=== PATIENT | female | born 1975 | race Caucasian/White ===

== ENCOUNTER 2018-03-05 09:57 | Emergency (ER) | payer OTHER, SELFPAY ==
[2018-03-05 10:03] VITALS: BP 148/92; PULSE 104; RESP 16; TEMP 36.4; O2SAT 100
--- NOTE | 2018-03-05 10:19 | W.ED.GENAD ---
Discharge Plan Discharge Details Chief Complaint: Cellulitis Primary Care Provider: Smooth Glover ED Provider: Gilbert Banks Home Meds and New Rx's Prescriptions: No Action clonazepam 0.5 MG tablet 0.5 - 1 mg PO BID Qty: 60 RF: 0 escitalopram oxalate 10 mg tablet 10 mg PO DAILY Qty: 30 RF: 11 Medical Decision Making Left lower lip swelling after piercin-year-old female presents with left lower lip swelling days after piercing with instead. She was unable to remove at home. She presented with mild anxiety and discrete tachycardia. I was able to remove this piercing, she had no purulent discharge. I will place her on antibiotics. She will perform swish and gargle with salt water therapy at home and follow-up with regular doctor if not improved in 5-7 days time. HPI General Mode of arrival: ambulatory. Date/Time Provider Initiated Documentation: 03/05/18 10:13. Limitations to Documentation: no limitations. Information obtained by: patient. History of Present Illness 42 year old F presents to the emergency department with the chief complaint of Left lower lip swelling after piercing, described as moderate, Quality is described as aching, and is localized to the mouth and left. Patient reports no radiation. Patient started experiencing this day(s) No relieving factors improve symptom(s), No exacerbating factors reported . Patient notes no other symptoms.. Related Data Home Medications Medication Instructions Recorded Confirmed clonazepam 0.5 - 1 mg PO BID #60 tab-cap 01/23/18 03/05/18 escitalopram 10 mg tablet 10 mg PO DAILY #30 tab 02/17/18 03/05/18 Previous Rx's Medication Instructions Recorded clonazepam 0.5 - 1 mg PO BID #60 tab-cap 01/23/18 escitalopram 10 mg tablet 10 mg PO DAILY #30 tab 02/17/18 Allergies Allergy/AdvReac Type Severity Reaction Status Date / Time No Known Allergies Allergy Unverified 03/05/18 10:05 General Stated Complaint: Cellulitis YAMILA: 4 Review of Systems Review of Systems 6 systems reviewed and otherwise negative FOR[facility]LY [facility] Family History Mother Asthma Father Diabetes Heart disease Sister No problems noted. Social History Smoking/Tobacco Use Status: Current every day Surgical History Dilation and curettage (~01/2013) LSO, LAPROSCOPIC Exam Narrative Exam Narrative: GEN: awake, alert, oriented 3. Pleasant, well groomed, interactive. HEAD: Normocephalic, atraumatic ENT: Mucous membranes moist, oropharynx unremarkable. Left lower lip has piercing in place, mild surrounding swelling tenderness. Patient removed. No fluctuance, no purulent discharge. External ear exam unremarkable EYES: PERRL, EOMI NECK: Full ROM, no VIRGIL, no menigismus Neuro: Grossly normal neurologic exam, conversant, interactive. Psych: Speech fluent, thoughts congruent, affect normal Course Vital Signs Temperature 36.4 C L 03/05/18 10:03 Pulse 104 H 03/05/18 10:03 Respiratory Rate 16 03/05/18 10:03 Blood Pressure 148/92 H 03/05/18 10:03 Pulse Oximetry 100 03/05/18 10:03 Temperature 36.4 C L 03/05/18 10:03 Temperature Source Skin 03/05/18 10:03 Pulse 104 H 03/05/18 10:03 Respiratory Rate 16 03/05/18 10:03 Respiratory Effort 03/05/18 10:03 Blood Pressure 148/92 H 03/05/18 10:03 Blood Pressure Position Sitting 03/05/18 10:03 Pulse Oximetry 100 03/05/18 10:03 Oxygen Delivery Method Room Air 03/05/18 10:03 Oxygen Flow Rate 0 03/05/18 10:03 Pain Level 7 03/05/18 10:03
== END 2018-03-05 10:26 | disposition home or self-care (01) ==
PROVIDERS: Emergency Provider Emergency Medicine; PCP Family Medicine
DX: L08.89 Other specified local infections of the skin and subcutaneous tissue (principal)
CPT/HCPCS: 99283

== ENCOUNTER 2018-07-17 15:12 | Emergency (ER) | payer OTHER, SELFPAY ==
[2018-07-17 15:46] VITALS: PULSE 90; RESP 16; TEMP 36.5; O2SAT 99
--- NOTE | 2018-07-17 16:09 | ED.GENADUL_ITS ---
Discharge Plan Disposition Patient Disposition: HOME Condition: Good Discharge Details Chief Complaint: EarProblem Clinical Impression: Acute right otitis media Reason For Visit: right ear pain Primary Care Provider: Smooth Glover ED Provider: Paul Sharma Home Meds and New Rx's Prescriptions: New amoxicillin 500 mg capsule 500 mg PO BID Qty: 14 RF: 0 loratadine 10 mg capsule 10 mg PO DAILY Qty: 14 RF: 0 No Action ibuprofen 400 mg Tablet 400 mg PO PRNRF: 0 Discharge Instructions Instructions: Otitis Media (ED) Additional Instructions: Please take medication as directed. Please take 1000 mg of acetaminophen and 800 mg of ibuprofen every 6 hours. If you notice any worsening of your symptoms, or any new symptoms such as vomiting, diarrhea, fever, chills, shortness of breath, chest pain, numbness, weakness, or fainting , please return immediately to the emergency department for reevaluation. Please follow up with your primary care provider as soon as possible for reassessment and reevaluation. As always, it was a pleasure participating in your medical care today. Referrals: Smooth Glover. [Primary Care Provider] - Medical Decision Making This is a pleasant 42-year-old female who presents today with signs and symptoms consistent with otitis externa. No evidence of tenderness over the mastoid, no red flags of meningitis. No concerning symptoms of systemic infection at this time. The remainder of her physical exam is otherwise benign with no evidence of rupture at the tympanic membrane. I feel that the patient would be benefited by antibiotics in conjunction with antihistamines. Will recommend NSAIDs for outpatient use as well. We discussed the importance of close follow-up and red flags which to return. I have extensively reviewed the treatment plan and discharge instructions with the patient. I have addressed all patient concerns at this time. The patient was made aware of what symptoms to monitor for that would warrant a return to the emergency department. Discussed the plan with the patient, they demonstrate verbal understanding and agreement with our assessment and plan at this time. HPI General Date/Time Provider Initiated Documentation: 07/17/18 16:08 . HPI Narrative: This is a 42-year-old female with no significant past medical history except for regular tobacco abuse who presents today for evaluation of right- sided ear pain. The patient states that for the past week she has had a mild upper respiratory infection with runny nose, cough, congestion. The patient had notable improvement of her symptoms except for today she was out walking her dog when she noticed sudden right sided ear pain. She came in within the next 2 hours for further evaluation. She does admit to mild decreased hearing in the right ear, she denies any headache, neck pain, neck stiffness, fever, chills, nausea, vomiting, diarrhea. Her other symptoms of URI have notably improved she denies any recent surgeries, trauma, or recent antibiotic use. She denies any other complaints at this time. She denies any pertinent family history or IV or illicit drug use. Related Data Home Medications Medication Instructions Recorded Confirmed amoxicillin 500 mg PO BID #14 cap 07/17/18 ibuprofen 400 mg PO PRN 07/17/18 loratadine 10 mg PO DAILY #14 cap 07/17/18 Previous Rx's Medication Instructions Recorded amoxicillin 500 mg PO BID #14 cap 07/17/18 loratadine 10 mg PO DAILY #14 cap 07/17/18 Allergies Allergy/AdvReac Type Severity Reaction Status Date / Time No Known Allergies Allergy Unverified 03/05/18 10:05 General Stated Complaint: EarProblem YAMILA: 4 Review of Systems Review of Systems All systems reviewed & are unremarkable except as noted in HPI and below PFSH Family History Mother Asthma Father Diabetes Heart disease Sister No problems noted. Social History frequency: 3-4 times per week duration: 15-30 minutes/day Smoking/Tobacco Use Status: Current every day tobacco type: cigarettes substance use type: does not use seatbelt use: always helmet use: Yes helmet use: always Exam Narrative Exam Narrative: 1.Const: Well-nourished, Well-developed, appearing stated age 2.Eyes: PERRL, no conjunctival injection, and symmetrical lids. 3.ENT: Atraumatic external nose and ears. Moist MM. Neck: Symmetric, trachea midline, No thyromegaly. Right tympanic membrane demonstrates notable effusion, with a serous component. Difficult to visualize osseous structures. Minimally erythematous around the tympanic membrane. No evidence of otitis externa. Left tympanic membrane is normal. Patient demonstrates good movement of cervical neck. There is no nuchal rigidity, no nuchal tenderness. Patient is able to flex the neck without any difficulty or significant pain. Negative Kernig's and Brudzinski sign. 4.CVS: +S1/S2, No murmurs or gallops. Peripheral pulses 2+ and equal in all extremities. Brisk capillary refill in all extremities. 5.RESP: Unlabored respiratory effort. Clear to auscultation bilaterally. No wheezes rales or rhonchi 6.GI: Soft, Nontender/Nondistended, No hepatosplenomegaly. No guarding or rebound. 7.MSK: Normocephalic/Atraumatic, Extremities w/o deformity or ttp No cyanosis or clubbing, Normal movement of all extremities 8.Skin: Warm, Dry. No rashes or lesions. 9.Neuro: director of neurology II-XII grossly intact. Sensation grossly intact, no focal neurologic deficits. 10.Psych: (AAO) x3. Appropriate mood and affect Course Vital Signs Temperature 36.5 C 07/17/18 15:46 Pulse 90 07/17/18 15:46 Respiratory Rate 16 07/17/18 15:46 Pulse Oximetry 99 07/17/18 15:46 Temperature 36.5 C 07/17/18 15:46 Temperature Source Temporal Artery Scan 07/17/18 15:46 Pulse 90 07/17/18 15:46 Respiratory Rate 16 07/17/18 15:46 Blood Pressure Position Sitting 07/17/18 15:46 Pulse Oximetry 99 07/17/18 15:46 Oxygen Delivery Method Room Air 07/17/18 15:46 Oxygen Flow Rate 0 07/17/18 15:46
== END 2018-07-17 16:15 | disposition home or self-care (01) ==
PROVIDERS: Emergency Provider Student in an Organized Health Care Education/Training Program; PCP Family Medicine
DX: H66.91 Otitis media, unspecified, right ear (principal); F17.210 Nicotine dependence, cigarettes, uncomplicated
CPT/HCPCS: 99283

== ENCOUNTER 2018-11-11 16:46 | Emergency (ER) | payer MEDICAID, SELFPAY ==
[2018-11-11] VITALS (16 sets, daily range): BP systolic 127–158; BP diastolic 70–94; PULSE 86–102; RESP 17–29; TEMP 36.8–36.9; O2SAT 95–100
--- NOTE | 2018-11-11 16:53 | ED.GENADUL_ITS ---
Discharge Plan Disposition Patient Disposition: HOME Condition: Stable Discharge Details Chief Complaint: SOB Clinical Impression: Anxiety, Shortness of breath Primary Care Provider: Estiven Yepez ED Provider: Michelle De Jesus Home Meds and New Rx's Prescriptions: Continued ibuprofen 400 mg Tablet 400 mg PO PRNRF: 0 Discharge Instructions Instructions: Dyspnea (ED), Anxiety (ED) Additional Instructions: Take the Ativan as needed and directed for shortness of breath or feelings of anxiety every 8 hours as needed. Call your primary care doctor on Tuesday to schedule a follow-up appointment for reevaluation. Return immediately to the emergency department with any worsening or concerning symptoms. Discharge Data Discharge Physician: Michelle De Jesus Medical Decision Making 43yo F w/ a h/o anxiety, depression, PTSD who presents for sob since last night. Patient states it feels like she cannot take a deep breath. She denies any fever, cough, chest pain, leg pain or swelling. Blood pressure mildly hypertensive. Patient appears anxious. Lungs clear to auscultation. No DVT/PE risk factors and PERC negative so doubt PE. Differential diagnosis appears most likely consistent with anxiety. Due to patient's age, and hypertension will check screening labs, EKG, chest x-ray. EKG notes a rate of 86 and sinus with no acute ST findings. Patient refused test and denies chance of . 1730 -- pt refused xanax per nurse but is now agreeable. 1900 -- pt feels better. Labs and imaging reviewed and negative. Patient states she feels good to go home. D-dimer still pending. 1930 --d-dimer negative. Patient is requesting to go home. She denies any complaints of shortness of breath or chest pain at this time. We will send home with 2 tabs of Ativan to help with shortness of breath or anxiety as needed. She is instructed to call her primary care doctor on Tuesday to schedule follow-up appointment for reevaluation. She is instructed to return here immediately with any worsening or new concerning symptoms. Medical Records Medical records reviewed: Yes I reviewed the patient's medical records. Imaging Data Radiologic Study: Radiologist's impression: XR Chest, 2 Views EXAM DATE/TIME: 11/11/2018 5:07 PM CLINICAL HISTORY: 43 years old, female; Signs and symptoms; Shortness of breath; Patient HX: Chest tightness, SOB TECHNIQUE: Imaging protocol: XR of the chest, 2 views. COMPARISON: No relevant prior studies available. FINDINGS: Lungs: Lung higginbotham are clear. No infiltrates. Pulmonary vaculature normal. Pleural space: No pleural effusion. No pneumothorax. Heart/Mediastinum: Heart size normal. No mediastinal widening. Bones/joints: No acute osseous abnormalities are identified. Other findings: No tracheal shift. IMPRESSION: No acute thoracic process. Lab Data Lab results reviewed: Yes I reviewed the patient's lab results. Laboratory Tests Range/Units 11/11/18 11/11/18 11/11/18 17:20 17:20 18:25 WBC (4.4-10.8) k/cumm 9.14 RBC (4.00-5.20) m/cumm 4.40 Hgb (12.0-15.5) g/dL 13.7 Hct (36.0-46.0) % 40.6 MCV (80-95) fL 92.3 MCH (27.0-33.0) pg 31.1 MCHC (32.0-36.0) g/dL 33.7 RDW (11.7-14.6) % 12.8 Plt Count (130-400) x1000/uL 282 MPV (8.0-11.0) fL 9.9 Immature Gran % 0.3 Neutrophils % 67.0 Lymphocytes % 21.6 Monocytes % 8.1 Eosinophils % 1.9 Basophils % 1.1 Absolute Neutrophils (1.2-6.7) k/cumm 6.13 Absolute Lymphocytes (1.2-3.4) k/cumm 1.97 Absolute Monocytes (0.11-0.7) k/cumm 0.74 H Absolute Eosinophils (0.0-0.7) k/cumm 0.17 Absolute Basophils (0.0-0.2) k/cumm 0.10 D-Dimer (<500) ng/mlFEU 243 Sodium (136-145) mmol/L 140 Potassium (3.5-5.1) mmol/L 3.4 L Chloride (98-107) mmol/L 103 Carbon Dioxide (21.0-32.0) mmol/L 27.6 Anion Gap (3-11) mmol/L 9.4 BUN (7-18) mg/dL 10 Creatinine (0.55-1.02) mg/dL 0.82 Estimated GFR/1.73 m2 (mL/min/1.73m2) >= 60.00 Glucose (70-100) mg/dL 100 Calcium (8.5-10.1) mg/dL 8.4 L Magnesium (1.8-2.4) mg/dL 1.7 L Total Bilirubin (0.2-1.0) mg/dL 0.3 AST (15-37) U/L 15 ALT (12-78) U/L 22 Alkaline Phosphatase (46-116) U/L 78 Troponin I (0.00-0.06) ng/mL < 0.02 Total Protein (6.4-8.2) g/dL 6.4 Albumin (3.4-5.0) g/dL 3.5 ECG Data Attestation: I personally reviewed and interpreted this ECG (s) as follows: Interpretation: Rate of 86, sinus, no acute ST elevation or depression. QTc 428. QRS 95. HPI General Mode of arrival: ambulatory . Date/Time Provider Initiated Documentation: 11/11/18 16:50 . Limitations to Documentation: no limitations . Information obtained by: patient . HPI Narrative: Patient is a 43-year-old female who presents the ED with a complaint of shortness of breath since last night. Patient describes a feeling of inability to take a deep breath and intermittent chest tightness. She denies any fever, cough, chest pain, leg pain or swelling, recent travel or recent surgery. She states she smokes tobacco and drink 2 glasses of wine last night. She states she was diagnosed with anxiety, depression, PTSD after her last year and she found him in the bathroom. She states she had been taking Lexapro and Klonopin but stopped these within the past year due to side effects and not liking the way it makes her f eel. Related Data Home Medications Medication Instructions Recorded Confirmed ibuprofen 400 mg PO PRN 07/17/18 Allergies Allergy/AdvReac Type Severity Reaction Status Date / Time No Known Allergies Allergy Unverified 11/11/18 16:51 General Stated Complaint: SOB YAMILA: 3 Review of Systems Review of Systems All systems reviewed & are unremarkable except as noted in HPI and below Constitutional Reports as per HPI, Denies chills and Denies fever(s) Eyes Denies blurry vision ENT Denies dizziness, Denies sore throat and Denies throat swelling Cardiovascular Denies chest pain and Reports dyspnea Respiratory Denies cough and Reports dyspnea Gastrointestinal Denies abdominal pain, Denies diarrhea and Denies vomiting Genitourinary Denies hematuria and Denies dysuria Musculoskeletal Denies back pain and Denies numbness Integumentary/Breasts Denies lesions and Denies rash Neurologic Denies dizziness, Denies focal weakness and Denies numbness Allergic/Immunologic Denies throat swelling PFSH Medical History PTSD (post-traumatic stress disorder) (Acute) Anxiety (Chronic) Depression (Chronic) Surgical History Dilation and curettage (~01/2013) LSO, LAPROSCOPIC Family History Mother Asthma Father Diabetes Heart disease Sister No problems noted. Social History Smoking/Tobacco Use Status: Current every day Tobacco Type: cigarettes Drug use: Daily Substance use type: does not use Duration: 15-30 minutes/day Frequency: 3-4 times per week Seatbelt use: always Helmet use: Yes Helmet use: always Do you feel safe at home: Yes Do you feel safe in your relationship?: Yes Exam Const General: cooperative, healthy appearing and anxious HENMT Head: normal to inspection Face and sinus: normal facial exam Eyes General: appearance normal, both eyes and all related structures EOM: EOM intact bilaterally Neck Neck: normal visual inspection and No submandibular swelling Lymphatic: no lymphadenopathy noted Chest Chest: normal inspection of the chest and no tenderness Resp Effort & Inspection: normal respiratory effort and able to speak in complete se ntences Auscultation: clear to auscultation bilaterally Cardio Rate: regular rate Rhythm: regular rhythm GI Inspection: normal to inspection Palpation: soft, not firm, not rigid and nontender Auscultation: normal bowel sounds Skin General skin exam: no rashes or lesions noted Neuro General: alert, awake and oriented x3 Cognition: normal cognition Speech: speech normal Motor: muscle tone normal throughout Sensory Exam: no sensory deficits noted Extrem General: normal to inspection, full ROM and no edema Psych Appearance: grossly normal Mental Status: mental status grossly normal Speech and Movement: speech and movement normal Affect: normal affect Course Vital Signs Temperature 98.2 F 11/11/18 16:49 Pulse 92 H 11/11/18 16:49 Respiratory Rate 20 11/11/18 16:49 Blood Pressure 155/94 H 11/11/18 16:49 Pulse Oximetry 100 11/11/18 16:49 Temperature 98.2 F 11/11/18 16:49 Temperature Source Temporal Artery Scan 11/11/18 16:49 Pulse 92 H 11/11/18 16:49 Respiratory Rate 20 11/11/18 16:49 Respiratory Effort Non-Labored 11/11/18 16:49 Blood Pressure 155/94 H 11/11/18 16:49 Pulse Oximetry 100 11/11/18 16:49 Oxygen Delivery Method Room Air 11/11/18 16:49 Oxygen Flow Rate 0 11/11/18 16:49 Pain Level 7 11/11/18 16:49
[2018-11-11] MEDS: Normal Saline 1,000 ML 1000 ML IV (17:25)
[2018-11-11] MEDS: LORazepam 0.5 MG TAB PO (17:35)
--- NOTE | 2018-11-11 17:37 | NUR.NOTE ---
Nursing Note: States I haven't had sex in ages. I am not and I do not want a test.
[2018-11-11 17:44] LABS: Abs Immature Grans 0.03 k/cumm (0.0-0.09); Absolute Eosinophil Count 0.17 k/cumm (0.0-0.7); Absolute Lymphocyte Count 1.97 k/cumm (1.2-3.4); Absolute Monocyte Count 0.74 k/cumm (0.11-0.7); Absolute Neutrophil Count 6.13 k/cumm (1.2-6.7); Basophils % 1.1; Eosinophils % 1.9; HCT 40.6 % (36.0-46.0); HGB 13.7 g/dL (12.0-15.5); Immature Grans % 0.3; Lymphocytes % 21.6; Mean Corp. HGB Concentration 33.7 g/dL (32.0-36.0); Mean Corpuscular Hemoglobin 31.1 pg (27.0-33.0); Mean Corpuscular Volume 92.3 fL (80-95); Mean Platelet Volume 9.9 fL (8.0-11.0); Monocytes % 8.1; Platelet Count 282 x1000/uL (130-400); RBC Distribution Width 12.8 % (11.7-14.6); White Blood Cell Count 9.14 k/cumm (4.4-10.8)
--- NOTE | 2018-11-11 17:54 | DI.RAD_ITS ---
SYMPTOM/DIAGNOSIS: CHEST TIGHTNESS, SOB PA AND LATERAL CHEST: The heart is normal in size. The lungs are clear. The mediastinal structures and pleura appear intact. CONCLUSION: Normal chest.
[2018-11-11 17:58] LABS: ALT 22 U/L (12-78); AST 15 U/L (15-37); Albumin 3.5 g/dL (3.4-5.0); Alkaline Phosphatase 78 U/L (46-116); Anion Gap 9.4 mmol/L (3-11); BUN 10 mg/dL (7-18); Bilirubin, Total 0.3 mg/dL (0.2-1.0); CO2 27.6 mmol/L (21.0-32.0); CREATININE 0.82 mg/dL (0.55-1.02); Calcium 8.4 mg/dL (8.5-10.1); Chloride 103 mmol/L (98-107); Glucose 100 mg/dL (70-100); Magnesium 1.7 mg/dL (1.8-2.4); Potassium 3.4 mmol/L (3.5-5.1); Sodium 140 mmol/L (136-145); Total Protein 6.4 g/dL (6.4-8.2)
[2018-11-11 17:59] LABS: Troponin I < 0.02 ng/mL (0.00-0.06)
--- NOTE | 2018-11-11 18:44 | DI.VRAD_ITS ---
EXAM: XR Chest, 2 Views EXAM DATE/TIME: 11/11/2018 5:07 PM CLINICAL HISTORY: 43 years old, female; Signs and symptoms; Shortness of breath; Patient HX: Chest tightness, SOB TECHNIQUE: Imaging protocol: XR of the chest, 2 views. COMPARISON: No relevant prior studies available. FINDINGS: Lungs: Lung higginbotham are clear. No infiltrates. Pulmonary vaculature normal. Pleural space: No pleural effusion. No pneumothorax. Heart/Mediastinum: Heart size normal. No mediastinal widening. Bones/joints: No acute osseous abnormalities are identified. Other findings: No tracheal shift. IMPRESSION: No acute thoracic process. Dictated and Authenticated by: Juan Wei MD. Ordering:LETICIA Martinez MD
--- NOTE | 2018-11-11 19:03 | NUR.NOTE ---
Nursing Note: Dr. Red at bedside to speak with pt.
[2018-11-11 19:26] LABS: D-Dimer 243 ng/mlFEU (<500)
[2018-11-11] MEDS: LORazepam 0.5 MG TAB 1 MG PO (19:59)
== END 2018-11-11 20:04 | disposition home or self-care (01) ==
PROVIDERS: Emergency Provider Physician Assistant; PCP Family Medicine
DX: F41.8 Other specified anxiety disorders (principal); R06.02 Shortness of breath
CPT/HCPCS: 36415; 80053; 93005; 96360; 96361; 99285; 71046; 83735; 84484; 85025; 85379; 93010

== ENCOUNTER 2019-02-02 00:02 | Emergency (ER) | payer MEDICAID, SELFPAY ==
[2019-02-02 00:05] VITALS: BP 142/99; PULSE 99; RESP 18; TEMP 36.6; O2SAT 97
--- NOTE | 2019-02-02 00:33 | ED.GENADUL_ITS ---
Discharge Plan Disposition Patient Disposition: HOME Condition: Good Discharge Details Chief Complaint: DentalOral Clinical Impression: Dental infection Primary Care Provider: Estiven Yepez ED Provider: Cabrera Link Meds and New Rx's Prescriptions: New benzocaine 20 % gel 1 applic MM QID PRN (Reason: mouth pain) Qty: 30 RF: 0 clindamycin HCl 150 mg capsule 450 mg PO TID 10 Days Qty: 90 RF: 0 Continued trazodone 50 mg Tablet 50 mg PO HS RF: 0 Changed ibuprofen 400 mg Tablet 400 mg PO Q8H PRNQty: 0 RF: 0 Discharge Instructions Instructions: Dental Abscess (ED) Additional Instructions: Please take antibiotic as directed. Use Motrin and Tylenol for pain. May use the benzocaine to help with discomfort as well. Call your dentist in the morning for follow-up. Return to ED for increasing pain/swelling, difficulty breathing, inability to swallow. Medical Decision Making Patient presenting with fractured tooth resulting in dental infection. She has significant swelling to the left mandibular area. It feels firm and tender but not really fluctuant. However, the inside left buccal area seems to possibly have mild fluctuance. Discussed needle aspiration with the patient. She was agreeable to procedure. After benzocaine was applied and adequate anesthesia obtained needle aspiration was attempted. No pus was returned. Patient will be started on clindamycin 450 mg p.o. 3 times daily. She is to use Motrin and Tylenol for pain. We will also have her use benzocaine topical on a as needed basis. She is to contact her dentist in the morning for follow-up. Return to ED for increasing pain and swelling, difficulty breathing, inability to swallow, other concerns or problems. HPI General Mode of arrival: ambulatory . Date/Time Provider Initiated Documentation: 02/02/19 00:10 . Limitations to Documentation: no limitations . Information obtained by: patient . HPI Narrative: Patient presents to ED with left lower jaw pain and swelling. Patient broke off her left lower tooth while eating this afternoon. It did not cause her pain. Her plan was to call the dentist in the morning. She had no issue eating dinner tonight. She went to bed but awoke early this morning with pain and swelling to her face. She has no difficulty breathing. She has no difficulty swallowing. She has had no fever. She presents now for evaluation due to the pain and swelling in her face. Related Data Home Medications Medication Instructions Recorded Confirmed benzocaine 1 applic MM QID PRN #30 gm 02/02/19 clindamycin HCl 450 mg PO TID 10 Days #90 cap 02/02/19 ibuprofen 400 mg PO Q8H PRN #0 tab 02/02/19 02/02/19 trazodone 50 mg PO HS 02/02/19 02/02/19 Previous Rx's Medication Instructions Recorded benzocaine 1 applic MM QID PRN #30 gm 02/02/19 clindamycin HCl 450 mg PO TID 10 Days #90 cap 02/02/19 ibuprofen 400 mg PO Q8H PRN #0 tab 02/02/19 Allergies Allergy/AdvReac Type Severity Reaction Status Date / Time No Known Allergies Allergy Unverified 02/02/19 00:07 General Stated Complaint: DentalOral YAMILA: 4 Review of Systems Constitutional Denies chills and Denies fever(s) ENT Reports dental pain, Reports facial pain, Denies lip swelling, Denies neck pain, Denies throat swelling and Denies tongue swelling Musculoskeletal Denies neck pain Allergic/Immunologic Denies lip swelling, Denies throat swelling and Denies tongue swelling PFSH Medical History Anxiety (Chronic) Depression (Chronic) PTSD (post-traumatic stress disorder) (Acute) Surgical History Dilation and curettage (~01/2013) LSO, LAPROSCOPIC Social History Smoking/Tobacco Use Status: Current every day Tobacco Type: cigarettes Alcohol Intake: never Drug use: Daily Substance use type: marijuana Duration: 15-30 minutes/day Frequency: 3-4 times per week Seatbelt use: always Helmet use: Yes Helmet use: always Do you feel safe at home: Yes Do you feel safe in your relationship?: Yes Exam Const General: cooperative, comfortable and no acute distress Orientation: alert and oriented x3 HENMT Head: normocephalic and atraumatic Face and sinus: no erythema, edema on the left mandible, no fluctuance and tenderness on the left mandible Mouth: no drooling and no trismus Teeth and gingiva: other (left mandibular premolar fracture w/ soft tissue swelling gum/buccal area) Neck Neck: normal visual inspection, trachea midline and supple Skin General skin exam: no erythema and no fluctuance Course Vital Signs Temperature 97.9 F 02/02/19 00:05 Pulse 99 H 02/02/19 00:05 Respiratory Rate 18 02/02/19 00:05 Blood Pressure 142/99 H 02/02/19 00:05 Pulse Oximetry 97 02/02/19 00:05 Temperature 97.9 F 02/02/19 00:05 Temperature Source Skin 02/02/19 00:05 Pulse 99 H 02/02/19 00:05 Respiratory Rate 18 02/02/19 00:05 Respiratory Effort Non-Labored 02/02/19 00:08 Blood Pressure 142/99 H 02/02/19 00:05 Blood Pressure Position Sitting 02/02/19 00:05 Pulse Oximetry 97 02/02/19 00:05 Oxygen Delivery Method Room Air 02/02/19 00:05 Oxygen Flow Rate 0 02/02/19 00:05 Pain Level 10 02/02/19 00:05 Procedures Abscess I/D Site: Other Side (if applicable): Left Local Anesthetic: Other Anesthetic (topical benzocaine) Technique: Needle Aspiration Amount of fluid expressed (mL): 0
[2019-02-02] MEDS: Benzocaine 20% Gel 30 GM JAR MM (00:40)
[2019-02-02] MEDS: Clindamycin 150 MG CAP 450 MG PO ×2 (00:40→00:41)
== END 2019-02-02 00:55 | disposition home or self-care (01) ==
PROVIDERS: Emergency Provider Emergency Medicine; PCP Family Medicine
DX: R22.0 Localized swelling, mass and lump, head (principal); S02.5XXA Fracture of tooth (traumatic), initial encounter for closed fracture; X58.XXXA Exposure to other specified factors, initial encounter; K04.7 Periapical abscess without sinus
CPT/HCPCS: 10160

== ENCOUNTER 2019-03-15 15:46 | Outpatient (CLI) | payer MEDICAID, SELFPAY ==
--- NOTE | 2019-03-15 15:40 | DI.RAD_ITS ---
EXAM: XR CHEST 2V PA LATERAL INDICATION: EXERTIONAL SOB R06.09, WEIGHT LOSS R63.4, HEMOPTYSIS R04.2. COMPARISON: XR CHEST 2V PA LATERAL from 11/11/2018 TECHNIQUE: 2D digital imaging was performed. FINDINGS: The heart is not enlarged. Lungs are clear and well expanded. No pleural effusion seen IMPRESSION: . no evidence of acute process.
== END 2019-03-15 16:06 ==
PROVIDERS: PCP Family Medicine; Visit Provider Nurse Practitioner Family
DX: R06.02 Shortness of breath (principal); R63.4 Abnormal weight loss; R04.2 Hemoptysis
CPT/HCPCS: 71046

== ENCOUNTER 2019-03-15 16:42 | Outpatient (REF) | payer MEDICAID, SELFPAY ==
[2019-03-15 18:39] LABS: HCT 42.4 % (36.0-46.0); HGB 14.2 g/dL (12.0-15.5); Mean Corp. HGB Concentration 33.5 g/dL (32.0-36.0); Mean Corpuscular Hemoglobin 30.4 pg (27.0-33.0); Mean Corpuscular Volume 90.8 fL (80-95); Mean Platelet Volume 11.2 fL (8.0-11.0); Platelet Count 327 x1000/uL (130-400); RBC 4.67 m/cumm (4.00-5.20); White Blood Cell Count 7.08 k/cumm (4.4-10.8)
[2019-03-15 19:22] LABS: ALT 17 U/L (14-59); AST 13 U/L (15-37); Albumin 3.8 g/dL (3.4-5.0); Alkaline Phosphatase 80 U/L (46-116); Anion Gap 10.2 mmol/L (3-11); BUN 8 mg/dL (7-18); Bilirubin, Total 0.4 mg/dL (0.2-1.0); CO2 26.8 mmol/L (21.0-32.0); CREATININE 0.86 mg/dL (0.55-1.02); Chloride 107 mmol/L (98-107); Glucose 107 mg/dL (70-100); Potassium 4.2 mmol/L (3.5-5.1); Sodium 144 mmol/L (136-145); Total Protein 6.6 g/dL (6.4-8.2)
[2019-03-15 19:51] LABS: Iron 75 ug/dL (50-175); Total Iron Binding Capacity 292 ug/dL (250-450); Transferrin Sat 26 % (15-50)
== END 2019-03-15 17:02 ==
LOC: NCHCO 16:42
PROVIDERS: PCP Family Medicine; Visit Provider Nurse Practitioner Family
DX: R23.8 Other skin changes (principal); R63.4 Abnormal weight loss
CPT/HCPCS: 80053; 85027; 83540; 83550

== ENCOUNTER 2019-04-03 01:42 | Outpatient (CLI) | payer MEDICAID, SELFPAY ==
[2019-04-03] MEDS: Omnipaque 350 MG/ML 100 ML BTL IJ (11:28)
--- NOTE | 2019-04-03 11:31 | DI.CT_ITS ---
EXAM: CT CHEST W CLINICAL HISTORY: EXERTIONAL SHORTNESS OF BREATH, R06.09 TECHNIQUE: Post IV contrast using standard delay. COMPARISON: XR CHEST 2V PA LATERAL from 03/15/2019 FINDINGS: The heart size is normal. The aorta is normal in diameter and shows minimal calcification. No pleur al or pericardial effusions are seen. There is no evidence of adenopathy. There are no visible emph ysematous or fibrotic changes. No infiltrates or pulmonary nodules are seen. The tracheobronchial t ree is unremarkable. A cyst is noted in the upper left lobe of the liver. The gallbladder is contra cted. The spleen, pancreas and adrenals appear normal. There is nonobstructing stone in the upper t o mid left kidney. Degenerative changes are seen thoracic spine. IMPRESSION: No acute abnormality.
== END 2019-04-03 02:02 ==
PROVIDERS: PCP Nurse Practitioner Family; Visit Provider Family Medicine
DX: R06.09 Other forms of dyspnea (principal); R06.02 Shortness of breath; K76.89 Other specified diseases of liver; N20.0 Calculus of kidney
CPT/HCPCS: 71260; J3490

== ENCOUNTER 2019-05-07 07:30 | Emergency (ER) | payer MEDICAID, SELFPAY ==
--- NOTE | 2019-05-07 07:43 | ED.GENADUL_ITS ---
Discharge Plan Disposition Patient Disposition: HOME Condition: Stable Discharge Details Chief Complaint: Abd Prob Clinical Impression: Abdominal pain, Enteritis Primary Care Provider: Toy Florez ED Provider: Cammie Hernandez Home Meds and New Rx's Prescriptions: New ondansetron 4 mg tablet,disintegrating 4 mg PO BID-TID PRN (Reason: nausea and vomiting) Qty: 8 RF: 0 Continued trazodone 50 mg Tablet 100 mg PO HS RF: 0 ibuprofen 400 mg Tablet 400 mg PO Q8H PRNQty: 0 RF: 0 Discharge Instructions Instructions: Gastroenteritis (ED), Acute Nausea and Vomiting (ED), Abdominal Pain (ED) Additional Instructions: Please return immediately to the emergency department if you develop any new or worsening symptoms or if you become otherwise concerned. It is extremely important to call as soon as possible to make an appointment to be seen in follow-up for this visit by your primary care doctor. Referrals: Toy Florez, SHINGLE CATCHER [Primary Care Provider] - Discharge Data Discharge Date/Time-TO BE ENTERED AT DEPARTURE: 05/07/19 11:20 Medical Decision Making Ara Rutledge is a 43-year-old woman with a history of anxiety who presented to the emergency department with intermittent right upper quadrant pain radiating to the left upper quadrant and also to the right upper back with episodes of being pain-free, accompanied by vomiting, onset 4 AM today. On exam patient is well and nontoxic-appearing. Benign cardiopulmonary exam. Focal tenderness palpation right upper quadrant without peritoneal signs. No CVA tenderness to palpation. Concern for biliary disease versus pancreatitis versus kidney stone versus pyelonephritis versus other. Exam/history is not consistent with ACS, pulmonary embolism, acute aortic pathology. Plan for screening EKG, screening labs, IV, UA, right upper quadrant ultrasound. Right upper quadrant ultrasound negative for acute process, does show possible polyp. Plan for CT. CT shows enteritis, no other acute process. Labs reviewed, nondiagnostic, lactate within normal limits. On reassessment patient reports that she has had intermittent return of pain, but it is only lasting for 2 to 3 minutes at a time and is manageable. No vomiting in the ED. Patient has been able to drink in the emergency department without issue. Plan for ODT Zofran Rx. I had a lengthy discussion with the patient regarding return to emergency department precautions, importance of outpatient follow-up, and home care. Patient verbalized understanding of the plan and was amenable. All questions were answered. Patient was discharged home with clear plan for outpatient follow-up. Patient was discharged home without specific instructions regarding incidental finding of gallbladder polyp, I did call the patient at home after she was discharged in the emergency department and discussed the finding and the importance of outpatient follow-up. Patient verbalized understanding of this plan and was amenable. Medical Records Medical records reviewed: Yes I reviewed the patient's medical records. Imaging Data Radiologic Study: Attestation: I personally reviewed and interpreted this imaging study as follows: Radiologist's impression: EXAM: US ABDOMEN CLINICAL HISTORY: RUQ AND LUQ PAIN TECHNIQUE: Ultrasound abdomen performed using standard protocol. COMPARISON: No exams were available for comparison FINDINGS: LIVER: Liver is mildly enlarged and shows mild fatty infiltration. There is an incidental 1.7 centimeter cyst is seen. GALLBLADDER: No evidence of cholelithiasis. No evidence of wall thickening. No pericholecystic fluid identified. A 5 millimeter nonshadowing, rounded echogenic focus is seen, likely representing an incidental polyp. KIDNEYS: Kidneys are symmetric in size. No evidence of renal calculi. No evidence of hydronephrosis. No renal mass or cyst identified. BILIARY SYSTEM: No intrahepatic or extrahepatic biliary ductal dilation. CHEUNG'S SIGN: Negative. PANCREAS: Normal where visualized. SPLEEN: Not enlarged. ABDOMINAL AORTA AND IVC: Visualized portions normal caliber. ASCITES: None seen. IMPRESSION: Mildly enlarged fatty liver. Incidental gallbladder polyp. No evidence of acute cholecystitis.. EXAM: CT ABDOMEN PELVIS W CLINICAL HISTORY: ruq pain > luq pain TECHNIQUE: 100 cc Omnipaque 350 IV. FINDINGS: The heart size is normal. The lungs show minimal dependent changes. There is a small cyst in the left lobe of the liver. The gallbladder is unremarkable. The spleen, pancreas and adrenals are unremarkable. There is a tiny nonobstructing stone in the mid left kidney. There is no hydronephrosis. The appendix appears normal. There is free fluid in the pelvis. The uterus and left ovary are unremarkable. The right ovary is not definitely seen. Bladder is unremarkable. There is diffuse wall thickening involving loops of distal small bowel. There is mild distention. The proximal small bowel and stomach are unremarkable. There are mild atherosclerotic changes of the distal abdominal aorta. The SMA and celiac axis as well as ERIKA appear patent. There is no evidence of abscess or perforation. IMPRESSION: Wall thickening of loops of distal small bowel could represent enteritis. There is a small amount of free fluid. There is no evidence of appendicitis or abscess. Lab Data Lab results reviewed: Yes I reviewed the patient's lab results. Labs: Laboratory Tests Range/Units 05/07/19 05/07/19 05/07/19 07:40 07:45 07:45 WBC (4.4-10.8) k/cumm 10.95 H RBC (4.00-5.20) m/cumm 4.66 Hgb (12.0-15.5) g/dL 14.3 Hct (36.0-46.0) % 43.0 MCV (80-95) fL 92.3 MCH (27.0-33.0) pg 30.7 MCHC (32.0-36.0) g/dL 33.3 RDW (11.7-14.6) % 13.5 Plt Count (130-400) x1000/uL 311 MPV (8.0-11.0) fL 9.9 Immature Gran % 0.1 Neutrophils % 86.8 Lymphocytes % 5.6 Monocytes % 6.0 Eosinophils % 1.1 Basophils % 0.4 Absolute Neutrophils (1.2-6.7) k/cumm 9.50 H Absolute Lymphocytes (1.2-3.4) k/cumm 0.61 L Absolute Monocytes (0.11-0.7) k/cumm 0.66 Absolute Eosinophils (0.0-0.7) k/cumm 0.12 Absolute Basophils (0.0-0.2) k/cumm 0.04 Sodium (136-145) mmol/L 142 Potassium (3.5-5.1) mmol/L 3.9 Chloride (98-107) mmol/L 106 Carbon Dioxide (21.0-32.0) mmol/L 29.0 Anion Gap (3-11) mmol/L 7.0 BUN (7-18) mg/dL 11 Creatinine (0.55-1.02) mg/dL 0.82 Estimated GFR/1.73 m2 (mL/min/1.73m2) >= 60.00 Glucose (74-106) mg/dL 86 Lactate (0.6-1.4) mmol/L Calcium (8.5-10.1) mg/dL 8.4 L Total Bilirubin (0.2-1.0) mg/dL 0.5 AST (15-37) U/L 14 L ALT (14-59) U/L 15 Alkaline Phosphatase (46-116) U/L 85 Total Protein (6.4-8.2) g/dL 6.9 Albumin (3.4-5.0) g/dL 3.8 Lipase (73-393) U/L 108 Urine Color (Yellow) Yellow Urine Clarity (Clear) Clear Urine pH (5-8) 8.5 H Ur Specific Peetz (1.005-1.025) 1.020 Urine Protein (Negative) mg/dL Negative Urine Ketones (Negative) mg/dL Negative Urine Blood (Negative) Moderate H Urine Nitrite (Negative) Negative Urine Bilirubin (Negative) Negative Urine Urobilinogen (Up TO 0.2) EU/dL 0.2 Ur Leukocyte Esterase (Negative) Negative Urine RBC (0-2) HPF 10-20 H Urine WBC (0-5) HPF 0-2 Ur Epithelial Cells (Negative) HPF Moderate Urine Crystals (Negative) HPF Negative Urine Bacteria (Negative) HPF Few Urine Casts (Negative) LPF Negative Urine Mucus (Negative) Trace Urine Other (Negative) Ur Culture Indicated? No/sq. contamination Urine Glucose (Negative) mg/dL Negative Range/Units 05/07/19 10:20 WBC (4.4-10.8) k/cumm RBC (4.00-5.20) m/cumm Hgb (12.0-15.5) g/dL Hct (36.0-46.0) % MCV (80-95) fL MCH (27.0-33.0) pg MCHC (32.0-36.0) g/dL RDW (11.7-14.6) % Plt Count (130-400) x1000/uL MPV (8.0-11.0) fL Immature Gran % Neutrophils % Lymphocytes % Monocytes % Eosinophils % Basophils % Absolute Neutrophils (1.2-6.7) k/cumm Absolute Lymphocytes (1.2-3.4) k/cumm Absolute Monocytes (0.11-0.7) k/cumm Absolute Eosinophils (0.0-0.7) k/cumm Absolute Basophils (0.0-0.2) k/cumm Sodium (136-145) mmol/L Potassium (3.5-5.1) mmol/L Chloride (98-107) mmol/L Carbon Dioxide (21.0-32.0) mmol/L Anion Gap (3-11) mmol/L BUN (7-18) mg/dL Creatinine (0.55-1.02) mg/dL Estimated GFR/1.73 m2 (mL/min/1.73m2) Glucose (74-106) mg/dL Lactate (0.6-1.4) mmol/L 0.5 L Calcium (8.5-10.1) mg/dL Total Bilirubin (0.2-1.0) mg/dL AST (15-37) U/L ALT (14-59) U/L Alkaline Phosphatase (46-116) U/L Total Protein (6.4-8.2) g/dL Albumin (3.4-5.0) g/dL Lipase (73-393) U/L Urine Color (Yellow) Urine Clarity (Clear) Urine pH (5-8) Ur Specific Peetz (1.005-1.025) Urine Protein (Negative) mg/dL Urine Ketones (Negative) mg/dL Urine Blood (Negative) Urine Nitrite (Negative) Urine Bilirubin (Negative) Urine Urobilinogen (Up TO 0.2) EU/dL Ur Leukocyte Esterase (Negative) Urine RBC (0-2) HPF Urine WBC (0-5) HPF Ur Epithelial Cells (Negative) HPF Urine Crystals (Negative) HPF Urine Bacteria (Negative) HPF Urine Casts (Negative) LPF Urine Mucus (Negative) Urine Other (Negative) Ur Culture Indicated? Urine Glucose (Negative) mg/dL ECG Data Attestation: I personally reviewed and interpreted this ECG (s) as follows: Interpretation: EKG shows sinus rhythm at 72, normal axis, no acute ischemic changes, nondiagnostic EKG HPI General Mode of arrival: ambulatory . Date/Time Provider Initiated Documentation: 05/07/19 07:43 . Limitations to Documentation: no limitations . Information obtained by: patient, RN notes reviewed and old records reviewed . HPI Narrative: Ara Rutledge is a 43 y/o woman with h/o anxiety presenting to the emergency department with abdominal pain. Patient reports that pain woke her up at 4 AM this morning. She reports the pain is sharp, and her right upper quadrant and wraps around to her left upper quadrant. Patient also reports that pain radiates into her right upper back. She has vomited 4 or 5 times since onset of pain. Patient reports she has never had similar pain in the past. Episodes of pain occur every 15 or 20 minutes, and last for 2 or 3 minutes. During my initial encounter she reports she is not in any pain. She reports that since onset of the pain at 4 AM she has had no other pain. She also denies fever, shortness of breath, diarrhea/constipation, weakness, rash. Patient states that she was previously in her usual state of health, although she felt more tired than usual last night and went to bed early. No recent illness. Has been eating and drinking as usual prior to today. Related Data Home Medications Medication Instructions Recorded Confirmed ibuprofen 400 mg PO Q8H PRN #0 tab 02/02/19 05/07/19 trazodone 100 mg PO HS 02/02/19 05/07/19 ondansetron 4 mg PO BID-TID PRN #8 tab 05/07/19 Previous Rx's Medication Instructions Recorded ibuprofen 400 mg PO Q8H PRN #0 tab 02/02/19 ondansetron 4 mg PO BID-TID PRN #8 tab 05/07/19 Allergies Allergy/AdvReac Type Severity Reaction Status Date / Time No Known Allergies Allergy Unverified 05/07/19 08:05 General YAMILA: 4 Review of Systems Narrative: Constitutional: denies fevers Eyes: denies eye pain ENT: denies facial pain, dental pain, sore throat Cardiovascular: denies chest pain Respiratory: denies SOB, cough GI: denies diarrhea, constipation reports abdominal pain, vomiting : denies flank pain, dysuria MSK: denies neck pain, arthralgias, myalgias, reports right upper back pain Skin: denies rash Neuro: denies headaches, weakness [facility] Medical History Anxiety (Chronic) Depression (Chronic) PTSD (post-traumatic stress disorder) (Acute) Social History Smoking/Tobacco Use Status: Current every day Tobacco Type: cigarettes Alcohol Intake: never Drug use: Daily Substance use type: marijuana Duration: 15-30 minutes/day Frequency: 3-4 times per week Seatbelt use: always Helmet use: Yes Helmet use: always Do you feel safe at home: Yes Do you feel safe in your relationship?: Yes Exam Narrative Exam Narrative: Constitutional: well and [id number], pleasant, conversing normally HENT: head atraumatic/normocephalic/normal inspection, mucous membranes moist Eyes: conjunctiva normal, sclera normal, pupils 3mm b/l Neck: no stridor, normal ROM, trachea midline Chest: normal inspection Resp: normal work of breathing, LCTAB Cardio: normal rate, normal rhythm, no murmur appreciated GI: abdomen soft, non-distended, focal tenderness RUQ, positive Cheung sign, no rebound, no guarding, no other tenderness including no McBurney's point tenderness Back: No CVA tenderness bilaterally Skin: warm, dry, normal color, no rash Neuro: alert, not altered, grossly non-focal, normal tone Ext: no edema Psych: normal mood, normal affect, normal behavior
[2019-05-07 07:46] LABS: Bilirubin Negative (Negative); Blood Moderate (Negative); Clarity Clear (Clear); Glucose Negative (Negative); Ketones Negative (Negative); Leukocyte Esterase Negative (Negative); Nitrite Negative (Negative); Urobilinogen 0.2 EU/dL (Up TO 0.2); pH 8.5 (5-8)
[2019-05-07 07:51] VITALS: BP 150/115; PULSE 80; RESP 16; TEMP 37; O2SAT 100
[2019-05-07 07:56] LABS: Bacteria Few HPF (Negative); C & S Indicated? No/Sq. Contamination; Casts Negative LPF (Negative); Crystals Negative HPF (Negative); Epithelial Cells Moderate HPF (Negative); Mucus Trace (Negative); WBC 0-2 HPF (0-5)
--- NOTE | 2019-05-07 07:56 | DI.US_ITS ---
EXAM: US ABDOMEN CLINICAL HISTORY: RUQ AND LUQ PAIN TECHNIQUE: Ultrasound abdomen performed using standard protocol. COMPARISON: No exams were available for comparison FINDINGS: LIVER: Liver is mildly enlarged and shows mild fatty infiltration. There is an incidental 1.7 centim eter cyst is seen. GALLBLADDER: No evidence of cholelithiasis. No evidence of wall thickening. No pericholecystic fluid identified. A 5 millimeter nonshadowing, rounded echogenic focus is seen, likely representing an in cidental polyp. KIDNEYS: Kidneys are symmetric in size. No evidence of renal calculi. No evidence of hydronephrosis. No renal mass or cyst identified. BILIARY SYSTEM: No intrahepatic or extrahepatic biliary ductal dilation. OGDEN'S SIGN: Negative. PANCREAS: Normal where visualized. SPLEEN: Not enlarged. ABDOMINAL AORTA AND IVC: Visualized portions normal caliber. ASCITES: None seen. IMPRESSION: Mildly enlarged fatty liver. Incidental gallbladder polyp. No evidence of acute cholecystitis..
[2019-05-07] MEDS: Normal Saline 1,000 ML 1000 ML IV (08:00)
[2019-05-07] MEDS: Ondansetron 4 MG/2 ML VIAL IVP (08:05)
[2019-05-07 08:06] LABS: Abs Immature Grans 0.01 k/cumm (0.0-0.09); Absolute Basophil Count 0.04 k/cumm (0.0-0.2); Absolute Eosinophil Count 0.12 k/cumm (0.0-0.7); Absolute Lymphocyte Count 0.61 k/cumm (1.2-3.4); Absolute Monocyte Count 0.66 k/cumm (0.11-0.7); Basophils % 0.4; Eosinophils % 1.1; HGB 14.3 g/dL (12.0-15.5); Immature Grans % 0.1; Lymphocytes % 5.6; Mean Corp. HGB Concentration 33.3 g/dL (32.0-36.0); Mean Corpuscular Hemoglobin 30.7 pg (27.0-33.0); Mean Corpuscular Volume 92.3 fL (80-95); Mean Platelet Volume 9.9 fL (8.0-11.0); Neutrophils % 86.8; Platelet Count 311 x1000/uL (130-400); RBC 4.66 m/cumm (4.00-5.20); RBC Distribution Width 13.5 % (11.7-14.6); White Blood Cell Count 10.95 k/cumm (4.4-10.8)
[2019-05-07 08:23] LABS: ALT 15 U/L (14-59); AST 14 U/L (15-37); Albumin 3.8 g/dL (3.4-5.0); Alkaline Phosphatase 85 U/L (46-116); BUN 11 mg/dL (7-18); Bilirubin, Total 0.5 mg/dL (0.2-1.0); CREATININE 0.82 mg/dL (0.55-1.02); Calcium 8.4 mg/dL (8.5-10.1); Chloride 106 mmol/L (98-107); Glucose 86 mg/dL (74-106); Lipase 108 U/L (73-393); Potassium 3.9 mmol/L (3.5-5.1); Sodium 142 mmol/L (136-145); Total Protein 6.9 g/dL (6.4-8.2)
--- NOTE | 2019-05-07 08:58 | DI.CT_ITS ---
EXAM: CT ABDOMEN PELVIS W CLINICAL HISTORY: ruq pain > luq pain TECHNIQUE: 100 cc Omnipaque 350 IV. FINDINGS: The heart size is normal. The lungs show minimal dependent changes. There is a small cyst in the left lobe of the liver. The gallbladder is unremarkable. The spleen, pancreas and adrenals are unremarkab le. There is a tiny nonobstructing stone in the mid left kidney. There is no hydronephrosis. The appe ndix appears normal. There is free fluid in the pelvis. The uterus and left ovary are unremarkable. T he right ovary is not definitely seen. Bladder is unremarkable. There is diffuse wall thickening invo lving loops of distal small bowel. There is mild distention. The proximal small bowel and stomach are unremarkable. There are mild atherosclerotic changes of the distal abdominal aorta. The SMA and toni ac axis as well as ERIKA appear patent. There is no evidence of abscess or perforation. IMPRESSION: Wall thickening of loops of distal small bowel could represent enteritis. There is a small amount of free fluid. There is no evidence of appendicitis or abscess.
[2019-05-07] MEDS: Omnipaque 350 MG/ML 100 ML BTL IV (09:10)
[2019-05-07 10:29] VITALS: BP 146/80; PULSE 78; RESP 16; O2SAT 99
[2019-05-07 10:31] LABS: Lactate 0.5 mmol/L (0.6-1.4)
[2019-05-07 11:15] VITALS: BP 146/80; PULSE 78; RESP 16; TEMP 37; O2SAT 99
== END 2019-05-07 11:20 | disposition home or self-care (01) ==
PROVIDERS: Emergency Provider Student in an Organized Health Care Education/Training Program; PCP Nurse Practitioner Family
DX: K52.9 Noninfective gastroenteritis and colitis, unspecified (principal)
CPT/HCPCS: 36415; 80053; 81025; 83690; 96361; 96374; 99285; 74177; 76700; 81003; 81015; 83605; 85025; 99284; J2405; J3490

== ENCOUNTER 2019-07-10 11:24 | Outpatient (REF) | payer MEDICAID, SELFPAY ==
[2019-07-10 18:46] LABS: Abs Immature Grans 0.03 k/cumm (0.0-0.09); Absolute Eosinophil Count 0.19 k/cumm (0.0-0.7); Absolute Lymphocyte Count 1.72 k/cumm (1.2-3.4); Absolute Monocyte Count 0.64 k/cumm (0.11-0.7); Basophils % 1.1; Eosinophils % 2.1; HCT 41.6 % (36.0-46.0); HGB 13.7 g/dL (12.0-15.5); Immature Grans % 0.3 %; Lymphocytes % 19.2; Mean Corp. HGB Concentration 32.9 g/dL (32.0-36.0); Mean Corpuscular Hemoglobin 30.3 pg (27.0-33.0); Mean Platelet Volume 11.3 fL (8.0-11.0); Monocytes % 7.1; Neutrophils % 70.2; Platelet Count 301 x1000/uL (130-400); RBC 4.52 m/cumm (4.00-5.20); RBC Distribution Width 13.4 % (11.7-14.6); White Blood Cell Count 8.98 k/cumm (4.4-10.8)
[2019-07-10 18:54] LABS: Bilirubin Negative (Negative); Blood Trace-intact (Negative); Clarity Sl Cloudy (Clear); Glucose Negative (Negative); Ketones Negative (Negative); Leukocyte Esterase Negative (Negative); Nitrite Negative (Negative); Urobilinogen 0.2 EU/dL (Up TO 0.2); pH 6.5 (5-8)
[2019-07-10 19:04] LABS: Epithelial Cells Moderate HPF (Negative); RBC 0-2 HPF (0-2); WBC 0-2 HPF (0-5)
[2019-07-10 19:05] LABS: Bacteria Moderate HPF (Negative); C & S Indicated? Yes; Crystals Negative HPF (Negative); Mucus Negative (Negative)
[2019-07-10 19:10] LABS: ALT 18 U/L (14-59); AST 12 U/L (15-37); Albumin 3.7 g/dL (3.4-5.0); Alkaline Phosphatase 74 U/L (46-116); Anion Gap 9.5 mmol/L (3-11); BUN 9 mg/dL (7-18); Bilirubin, Total 0.4 mg/dL (0.2-1.0); CO2 27.5 mmol/L (21.0-32.0); CREATININE 0.74 mg/dL (0.55-1.02); Calcium 8.2 mg/dL (8.5-10.1); Chloride 105 mmol/L (98-107); Glucose 82 mg/dL (74-106); Potassium 4.4 mmol/L (3.5-5.1); Sodium 142 mmol/L (136-145); Total Protein 6.2 g/dL (6.4-8.2)
== END 2019-07-10 11:44 ==
LOC: NCHCN 11:24
PROVIDERS: PCP Nurse Practitioner Family; Visit Provider Nurse Practitioner Family
DX: R10.11 Right upper quadrant pain (principal); K82.4 Cholesterolosis of gallbladder
CPT/HCPCS: 80053; 81003; 81015; 85025; 87086

== ENCOUNTER 2019-07-31 01:50 | Outpatient (CLI) | payer MEDICAID, SELFPAY ==
--- NOTE | 2019-07-31 | DI.US_ITS ---
EXAM: US ABDOMEN CLINICAL HISTORY: ABD PAIN RT UPPER QUAD, R10.11 TECHNIQUE: Ultrasound abdomen performed using standard protocol. COMPARISON: US ABDOMEN from 05/07/2019 CT ABDOMEN PELVIS W from 05/07/2019 FINDINGS: LIVER: Normal. Unchanged hepatic cyst. Hepatopetal flow through the portal vein. Liver measures 16 .9 cm in length. GALLBLADDER: No evidence of cholelithiasis. No evidence of wall thickening. No pericholecystic fluid identified. 0.5 cm gallbladder polyp. KIDNEYS: Kidneys are symmetric in size. No evidence of renal calculi. No evidence of hydronephrosis. No renal mass or cyst identified. BILIARY SYSTEM: Common bile duct measures 5 mm. No intrahepatic biliary ductal dilation. OGDEN'S SIGN: Negative. PANCREAS: Normal where visualized. SPLEEN: Not enlarged. ABDOMINAL AORTA AND IVC: Visualized portions normal caliber. ASCITES: None seen. IMPRESSION: 1. 0.5 cm gallbladder polyp. 2. Stable hepatic cyst.
== END 2019-07-31 02:10 ==
PROVIDERS: PCP Nurse Practitioner Family; Visit Provider Nurse Practitioner Family
DX: R10.11 Right upper quadrant pain (principal); K76.89 Other specified diseases of liver; K82.4 Cholesterolosis of gallbladder
CPT/HCPCS: 76700

== ENCOUNTER 2019-09-27 06:03 | Emergency (ER) | payer OTHER, MEDICAID, SELFPAY ==
[2019-09-27 06:07] VITALS: BP 126/95; PULSE 124; RESP 18; TEMP 36.6; O2SAT 96
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
[2019-09-27] MEDS: Ketorolac 15 MG/ML VIAL IVP (06:38)
[2019-09-27] MEDS: Lactated Ringers 1,000 ML 1000 ML IV (06:38)
[2019-09-27 06:44] LABS: Abs Immature Grans 0.02 k/cumm (0.0-0.09); Absolute Basophil Count 0.07 k/cumm (0.0-0.2); Absolute Eosinophil Count 0.11 k/cumm (0.0-0.7); Absolute Lymphocyte Count 1.36 k/cumm (1.2-3.4); Absolute Monocyte Count 0.77 k/cumm (0.11-0.7); Absolute Neutrophil Count 7.56 k/cumm (1.2-6.7); Basophils % 0.7; Eosinophils % 1.1; HGB 13.8 g/dL (12.0-15.5); Immature Grans % 0.2 %; Lymphocytes % 13.8; Mean Corp. HGB Concentration 33.7 g/dL (32.0-36.0); Mean Corpuscular Hemoglobin 29.7 pg (27.0-33.0); Mean Corpuscular Volume 88.4 fL (80-95); Mean Platelet Volume 9.9 fL (8.0-11.0); Monocytes % 7.8; Neutrophils % 76.4; Platelet Count 316 x1000/uL (130-400); RBC 4.64 m/cumm (4.00-5.20); RBC Distribution Width 13.4 % (11.7-14.6); White Blood Cell Count 9.89 k/cumm (4.4-10.8)
[2019-09-27 06:57] LABS: Anion Gap 10.6 mmol/L (3-11); BUN 6 mg/dL (7-18); CO2 25.4 mmol/L (21.0-32.0); CREATININE 0.74 mg/dL (0.55-1.02); Calcium 8.9 mg/dL (8.5-10.1); Chloride 104 mmol/L (98-107); Glucose 102 mg/dL (74-106); Potassium 3.6 mmol/L (3.5-5.1); Sodium 140 mmol/L (136-145)
[2019-09-27] MEDS: Normal Saline - Diluent 50 ML VIAL IV (06:57)
[2019-09-27] MEDS: Omnipaque 350 MG/ML 100 ML BTL 85 ML IJ (06:58)
--- NOTE | 2019-09-27 06:59 | DI.CT_ITS ---
EXAM: CT CAROTID NECK CTA CLINICAL HISTORY: anterior neck/throat injury; difficulty swallowing. TECHNIQUE: Imaging Protocol: Axial CT angiography was performed with multi-slice acquisition and mul ti-planar and/or 3D reconstructions. CONTRAST MATERIAL: Intravenous: Omnipaque 350 Contrast volume: 85 mlstructured data in ml COMPARISON: CT ABDOMEN PELVIS W from 05/07/2019 FINDINGS: Common Carotid: Right: No aneurysm, occlusion or significant stenosis. Left: No aneurysm, occlusion or significant stenosis. External Carotid: Right: No aneurysm, occlusion or significant stenosis. Left: No aneurysm, occlusion or significant stenosis. Internal Carotid: Right: No aneurysm, occlusion or significant stenosis. Left: No aneurysm, occlusion or significant stenosis. Vertebral Artery: Right: No aneurysm, occlusion or significant stenosis. Left: No aneurysm, occlusion or significant stenosis. Basilar Artery: No aneurysm, occlusion or significant stenosis. Lung Apices: Normal. Bones: Degenerative disc changes. Soft Tissues: There is a prevertebral fluid collection extending from the C1 through C6 level. There is no narrowing of the airway. No soft tissue air is seen. No fracture is identified. The visuali zed portions of the brain are unremarkable. IMPRESSION: No evidence of vascular injury or significant stenosis. Prevertebral fluid collection measuring 5 mil limeters in thickness from C1 through C6, presumably post-traumatic. No abnormal soft tissue air. DATA REPOSITORY: All CT scans at this facility are submitted to the National Radiology Data Registry (NRDR) Dose Index Registry (DIR) with the [employer] (ACR). RADIATION OPTIMIZATION: All CT scans at this facility use at least one of these dose optimization te chniques: automated exposure control; mA and/or kV adjustment per patient size (includes targeted exa ms where dose is matched to clinical indication); or iterative reconstruction.
[2019-09-27] MEDS: Omnipaque 350 MG/ML 50 ML BTL IJ (07:06)
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
[2019-09-27 08:00] VITALS: BP 154/83; PULSE 83; RESP 18; TEMP 36.9; O2SAT 99
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
[2019-09-27 10:25] VITALS: BP 150/82; PULSE 86; RESP 18; TEMP 36.6; O2SAT 98
[2019-09-27 10:49] VITALS: RESP 18; TEMP 36.6; O2SAT 98
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
== END 2019-09-27 10:35 | disposition home or self-care (01) ==
PROVIDERS: Emergency Medicine; Emergency Provider Emergency Medicine; PCP Nurse Practitioner Family
DX: S19.89XA Other specified injuries of other specified part of neck, initial encounter (principal); W22.09XA Striking against other stationary object, initial encounter; V86.56XA Driver of dirt bike or motor/cross bike injured in nontraffic accident, initial encounter
CPT/HCPCS: 70491; 70498; 80048; 81025; 87880; 96361; 96374; 99252; 99285; L0172; 72141; 85025; 87081; J1885; J3490; Q9967

== ENCOUNTER 2020-01-27 10:38 | Emergency (ER) | payer MEDICAID, SELFPAY ==
--- NOTE | 2020-01-27 10:39 | W.ED.GENAD ---
Discharge Plan Disposition Patient Disposition: HOME Condition: Good Discharge Details Chief Complaint: Laceration Clinical Impression: Laceration, Ecchymosis Primary Care Provider: Toy Florez ED Provider: Mallika Kraus Home Meds and New Rx's Prescriptions: Continued trazodone 50 mg Tablet 100 mg PO HS RF: 0 ibuprofen 400 mg Tablet 400 mg PO Q8H PRNQty: 0 RF: 0 terbinafine HCl 250 mg tablet 250 mg PO DAILY RF: 0 Discharge Instructions Instructions: Laceration (ED) Additional Instructions: Keep wound clean, dry, covered. Tylenol and ibuprofen as needed for discomfort.. Discoloration is most consistent with bruising. Please monitor for signs of infection including spreading of redness, warmth, drainage, swelling, fever/chills. If you develop these or other new/worsening symptoms please seek care urgently once again. Otherwise, please follow-up with primary care in 1 week if symptoms are improving. Referrals: Toy Florez, [employer] MACHINE OPERATOR [Primary Care Provider] - Medical Decision Making Patient is a pleasant 44-year-old female presents today for evaluation of laceration to her right lower extremity. She states that 8 days ago she suffered a small laceration when she knocked her carpio against something. She has a superficial 1 cm laceration that appears to be healing well. Lateral to this is an area of ecchymosis. She reports that the ecchymotic area is uncomfortable and has been moving. Her primary concern at this point is that the area has been warm for the past few days and she is concerned for infection. I do not appreciate any swelling, fluctuance, erythema, warmth or drainage. She has not had any fevers or chills. Appears to be healing well with surrounding ecchymosis in the green stage of healing. I did encourage follow-up with primary care if wound continues to be in question. She was given return precautions. All of her questions and concerns were addressed and she is in agreement this plan. HPI General Mode of arrival: ambulatory. Date/Time Provider Initiated Documentation: 01/27/20 10:39. Limitations to Documentation: no limitations. Information obtained by: patient and RN notes reviewed. History of Present Illness 44 year old F presents to the emergency department with the chief complaint of Laceration left lower extremity, described as mild, Quality is described as aching, and is localized to the left and lower extremity. Patient reports no radiation. Patient started experiencing this day(s) (8) and it has been constant. No relieving factors improve symptom(s), No exacerbating factors reported . Patient notes no other symptoms.. Patient did receive the following treatments prior to arrival, none Related Data Home Medications Medication Instructions Recorded Confirmed ibuprofen 400 mg PO Q8H PRN #0 tab 02/02/19 05/07/19 trazodone 100 mg PO HS 02/02/19 05/07/19 terbinafine HCl 250 mg PO DAILY 09/27/19 09/27/19 Previous Rx's Medication Instructions Recorded ibuprofen 400 mg PO Q8H PRN #0 tab 02/02/19 Allergies Allergy/AdvReac Type Severity Reaction Status Date / Time No Known Allergies Allergy Unverified 09/27/19 06:12 General YAMILA: 4 Review of Systems Constitutional Constitutional: Reports as per HPI, Denies chills and Denies fever(s) Musculoskeletal Musculoskeletal: Reports as per HPI Integumentary/Breasts Skin/Breast: Reports as per HPI Neurologic Neurologic: Reports as per HPI, Denies sensory deficit and Denies paresthesias [facility] Medical History Anxiety (Chronic) Depression (Chronic) PTSD (post-traumatic stress disorder) (Acute) Surgical History Dilation and curettage (~01/2013) [facility], LAPROSCOPIC Family History Mother Asthma Father Diabetes Heart disease Sister No problems noted. Social History Smoking/Tobacco Use Status: Current every day Tobacco Type: cigarettes Alcohol Intake: never Drug use: Current Sobriety Substance use type: former substance user and marijuana Duration: 15-30 minutes/day Frequency: 3-4 times per week Seatbelt use: always Helmet use: Yes Helmet use: always Do you feel safe at home: Yes Do you feel safe in your relationship?: Yes Exam Const General: cooperative, healthy appearing, comfortable, no acute distress and well developed Nutritional Appearance: average body habitus and well nourished Orientation: alert and awake Resp Effort & Inspection: normal respiratory effort, able to speak in complete sentences and no respiratory distress Cardio Rate: regular rate Rhythm: regular rhythm Skin Trauma: laceration Neuro General: patient alert and patient awake Cognition: normal cognition Speech: speech normal Gait: normal gait Sensory Exam: no sensory deficits noted Extrem Upper/lower leg/hip images: 1. Area of 1 cm superficial laceration with surrounding ecchymosis. No erythema, warmth or drainage. 2+ distal pulses, sensation is intact. No difficulty with ambulation. Psych Appearance: grossly normal and well kempt Mental Status: mental status grossly normal Speech and Movement: speech and movement normal
[2020-01-27 15:22] VITALS: BP 127/84; PULSE 74; RESP 18; TEMP 37; O2SAT 98
== END 2020-01-27 15:27 | disposition home or self-care (01) ==
LOC: ER 11:25
PROVIDERS: Emergency Provider Physician Assistant; PCP Nurse Practitioner Family
DX: S81.811A Laceration without foreign body, right lower leg, initial encounter (principal); W22.8XXA Striking against or struck by other objects, initial encounter
CPT/HCPCS: 99282; 99283

== ENCOUNTER 2020-03-19 08:15 | Emergency (ER) | payer MEDICAID, SELFPAY ==
[2020-03-19 08:18] VITALS: BP 125/77; PULSE 80; RESP 16; TEMP 36.6; O2SAT 98
--- NOTE | 2020-03-19 08:30 | W.ED.GENAD ---
Discharge Plan Disposition Patient Disposition: HOME Condition: Stable Discharge Details Clinical Impression: Cellulitis of lip Primary Care Provider: Toy Florez ED Provider: Mohini Carter Home Meds and New Rx's Prescriptions: New sulfamethoxazole-trimethoprim [Bactrim DS] 800-160 mg tablet 1 tab PO BID 7 Days Qty: 14 RF: 0 No Action trazodone 50 mg Tablet 100 mg PO HS RF: 0 ibuprofen 400 mg Tablet 400 mg PO Q8H PRNQty: 0 RF: 0 Discharge Instructions Instructions: Cellulitis (ED) Additional Instructions: Follow up with primary care provider in 3-5 days. Return to ED sooner if any worsening or concerns. Increase oral fluids. Please take Tylenol or Ibuprofen with food every 4-6 hours as needed for pain and swelling. Take medications as directed. Apply warm moist compresses to area up to 3 times daily. Try not to touch area or pinch area. Keep clean and dry. Stand Alone Forms: Work Release Referrals: Toy Florez, APPLICATIONS CHEMIST [Primary Care Provider] - Discharge Data Discharge Date/Time-TO BE ENTERED AT DEPARTURE: 03/19/20 08:54 Medical Decision Making 44-year-old female presents with right lower lip swelling which she reports began this morning. She does have what she describes as a small pimple just adjacent to the swelling, she stated that she tried to pinch the area and expressed some drainage this morning. She did take a Benadryl tablet at home prior to arrival which did nothing for symptoms. She does have poor dentition on exam, no area of fluctuance palpated. There is an area of induration noted around the small opening. At this time findings are consistent with a cellulitis related to the pimple. Will treat patient with Bactrim DS first dose given here in department. Patient was given ibuprofen 600 mg p.o. patient discharged with home care instructed to apply warm compresses and follow-up with PCP in 3 to 5 days. Prescription given for Bactrim and instructed on strict return instructions. HPI General Mode of arrival: ambulatory. Date/Time Provider Initiated Documentation: 03/19/20 08:23. Limitations to Documentation: no limitations. Information obtained by: patient. HPI Narrative: 44-year-old female presents to the ER with chief complaint of lower lip swelling. She reports that she woke up this morning with increased swelling. She does have a small puncture wound just adjacent to the swelling which she reports was a pimple, she states that she squeezed it this morning and some greenish discharge was expressed. She states she took a Benadryl this morning prior to arrival which did nothing for her symptoms. She denies any rash or any other complaints at this time. Of note there is a healing contusion noted to her left periorbital area which patient is covered with make-up. She denies any recent injuries. Related Data Home Medications Medication Instructions Recorded Confirmed ibuprofen 400 mg PO Q8H PRN #0 tab 02/02/19 03/19/20 trazodone 100 mg PO HS 02/02/19 03/19/20 sulfamethoxazole-trimethoprim 1 tab PO BID 7 Days #14 tab 03/19/20 [Bactrim DS] Previous Rx's Medication Instructions Recorded ibuprofen 400 mg PO Q8H PRN #0 tab 02/02/19 sulfamethoxazole-trimethoprim 1 tab PO BID 7 Days #14 tab 03/19/20 [Bactrim DS] Allergies Allergy/AdvReac Type Severity Reaction Status Date / Time No Known Allergies Allergy Unverified 03/19/20 08:21 General Stated Complaint: Allergic YAMILA: 3 Review of Systems All systems reviewed & are unremarkable except as noted in HPI and below Constitutional Constitutional: Denies chills, Denies fever(s) and Denies headache(s) ENT Ears, Nose, Mouth, and Throat: Denies headache(s) Integumentary/Breasts Skin/Breast: Reports new lesions (Right lower lip) and Reports skin swelling Neurologic Neurologic: Denies headache(s) [facility] Medical History (Updated 03/19/20 @ 08:36 by Mohini Carter) Anxiety Depression PTSD (post-traumatic stress disorder) Surgical History Dilation and curettage (~01/2013) [facility], LAPROSCOPIC Family History Mother Asthma Father Diabetes Heart disease Sister No problems noted. Social History Smoking/Tobacco Use Status: Current every day Tobacco Type: cigarettes Alcohol Intake: never Drug use: Current Sobriety Substance use type: former substance user and marijuana Duration: 15-30 minutes/day Frequency: 3-4 times per week Seatbelt use: always Helmet use: Yes Helmet use: always Do you feel safe at home: Yes Do you feel safe in your relationship?: Yes Exam Narrative Exam Narrative: Constitutional: Alert and oriented x3. Appears stated age. Normal body habitus. Head: Normocephalic, no trauma. Eyes: Pupils PERRLA, Red reflex noted, EOM's intact. Eyelids symmetrical without lesions, discharge, or swelling. Does have a healing periorbital contusion noted to the left. ENT: Bilateral TM's WNL, External ear normal to inspection, no mastoid TTP, swelling, or erythema, Nasal turbinates WNL, no nasal discharge. Poor dentition, does have right lower lip swelling and a noted puncture wound, no area of fluctuance palpated. There is an area of induration noted just proximal to the puncture wound. Posterior pharynx WNL, no exudate. Chest: RRR, Normal S1, S2, distal pulses intact. Resp: Lungs clear to auscultation bilaterally, no wheezes, rales, or rhonchi. Musculoskeletal: Normal gait, 5/5 strength to all four extremities. Skin: No suspicious rashes or lesions. Capillary refill less than 2 sec. Neurologic: Cranial nerves II-XII intact. Alert and oriented x 3. DTR's intact. Hematologic/Lymphatic: No ecchymosis, no lymphadenopathy. Course Vital Signs Vital signs: Vital Signs Temperature 36.6 C 03/19/20 08:18 Pulse 80 03/19/20 08:18 Respiratory Rate 16 03/19/20 08:18 Blood Pressure 125/77 03/19/20 08:18 Pulse Oximetry 98 03/19/20 08:18 Temperature 36.6 C 03/19/20 08:18 Temperature Source Skin 03/19/20 08:18 Pulse 80 03/19/20 08:18 Respiratory Rate 16 03/19/20 08:18 Respiratory Effort 03/19/20 08:23 Blood Pressure 125/77 03/19/20 08:18 Blood Pressure Position Sitting 03/19/20 08:18 Pulse Oximetry 98 03/19/20 08:18 Oxygen Delivery Method Room Air 03/19/20 08:18 Oxygen Flow Rate 0 03/19/20 08:18 Pain Level 5 03/19/20 08:18
[2020-03-19] MEDS: Sulfameth/Trimeth DS TAB 1 TAB PO (08:34)
[2020-03-19] MEDS: Ibuprofen 600 MG TAB PO (08:34)
== END 2020-03-19 08:54 | disposition home or self-care (01) ==
PROVIDERS: Emergency Provider Registered Nurse Emergency; PCP Nurse Practitioner Family
DX: K13.0 Diseases of lips (principal); R23.8 Other skin changes
CPT/HCPCS: 99283

== ENCOUNTER 2020-06-24 18:04 | Outpatient (REF) | payer MEDICAID, SELFPAY ==
[2020-06-24 18:17] LABS: Abs Immature Grans 0.04 10^3/uL (0.0-0.06); Absolute Basophil Count 0.13 10^3/uL (0.0-0.2); Absolute Eosinophil Count 0.15 10^3/uL (0.0-0.7); Absolute Lymphocyte Count 2.26 10^3/uL (1.2-3.4); Absolute Monocyte Count 0.57 10^3/uL (0.1-0.8); Absolute Neutrophil Count 5.55 10^3/uL (1.2-6.7); Basophils % 1.5; Eosinophils % 1.7; HGB 13.4 g/dL (11.2-15.7); Immature Grans % 0.5; MCH 30.4 pg (27.0-33.0); MCHC 33.5 % (32.0-36.0); MCV 90.7 fL (80-95); MPV 10.4 fL (8.0-11.0); Monocytes % 6.6; Neutrophils % 63.7; Nucleated RBC 0 %; Platelet Count 327 10^3/uL (130-400); RBC 4.41 10^6/uL (3.93-5.22); RDW 13.2 % (11.7-14.6); RDW-SD 44.1 fL
[2020-06-24 18:58] LABS: ALT 17 U/L (14-59); AST 11 U/L (15-37); Alkaline Phosphatase 91 U/L (46-116); Anion Gap 10.2 mmol/L (3-11); BUN 9 mg/dL (7-18); Bilirubin, Total 0.4 mg/dL (0.2-1.0); CO2 27.8 mmol/L (21.0-32.0); CREATININE 0.92 mg/dL (0.55-1.02); Calcium 8.8 mg/dL (8.5-10.1); Chloride 101 mmol/L (98-107); Glucose 86 mg/dL (74-106); Potassium 3.8 mmol/L (3.5-5.1); Sodium 139 mmol/L (136-145); TSH (W/Ref FT4) 1.53 uIU/mL (0.36-3.74); Total Protein 6.8 g/dL (6.4-8.2); Vitamin B12 158 pg/mL (193-986)
== END 2020-06-24 18:24 ==
LOC: NCHCN 18:04
PROVIDERS: PCP Nurse Practitioner Family; Visit Provider Family Medicine
DX: R20.2 Paresthesia of skin (principal); R63.4 Abnormal weight loss; R25.1 Tremor, unspecified
CPT/HCPCS: 80053; 82607; 84443; 85025

== ENCOUNTER 2020-10-09 14:50 | Outpatient (REF) | payer MEDICAID, SELFPAY ==
[2020-10-09 14:43] LABS: Ferritin 86 ng/mL (8-252); Vitamin B12 268 pg/mL (193-986)
== END 2020-10-09 14:51 | disposition home or self-care (01) ==
LOC: NCHCN 14:50
PROVIDERS: PCP Nurse Practitioner Family; Visit Provider Family Medicine
DX: E53.8 Deficiency of other specified B group vitamins (principal); L65.9 Nonscarring hair loss, unspecified
CPT/HCPCS: 82607; 82728

== ENCOUNTER 2021-01-08 16:39 | Emergency (ER) | payer MEDICAID, SELFPAY ==
[2021-01-08] VITALS (14 sets, daily range): BP systolic 125–161; BP diastolic 57–84; PULSE 78–100; RESP 16; TEMP 35.9; O2SAT 97–100
--- NOTE | 2021-01-08 17:15 | RT.EKG_ITS ---
APPROVED REPORT Exam: Resting ECG Reason for Exam: back pain Patient Location: E HR:93 bpm ECG Measurements Heart Rate 93 AXIS TX 152 P 51 QRSd 97 QRS 43 QT 351 T 13 QTc 437 Conclusion Sinus rhythm...normal P axis, V-rate 60- 99
--- NOTE | 2021-01-08 17:15 | DI.RAD_ITS ---
Exam(s) XR CHEST 2V PA LATERAL EXAM: XR CHEST 2V PA LATERAL CLINICAL HISTORY: back/R arm pain TECHNIQUE: 2D digital imaging was performed. COMPARISON: CR XR CHEST 2V PA LATERAL from 03/15/2019 FINDINGS: MEDIASTINUM: Normal. HEART: Normal. PULMONARY VASCULATURE: Normal. LUNGS: Clear. PLEURAL SPACE: No pleural effusion or pneumothorax. BONE:Within normal limits for the patient's age. OTHER FINDINGS:Normal. IMPRESSION: No acute pulmonary findings. DATA REPOSITORY: RADIATION DOSE DELIVERED:
--- NOTE | 2021-01-08 17:26 | ED.GENADUL_ITS ---
Discharge Plan Disposition Patient Disposition: HOME Condition: Stable Discharge Details Clinical Impression: Compression fx, thoracic spine, Radiculopathy of cervical spine Primary Care Provider: Toy Florez ED Provider: Misael Carey Home Meds and New Rx's Prescriptions: Continued trazodone 50 mg Tablet 100 mg PO HS RF: 0 ibuprofen 400 mg Tablet 400 mg PO Q8H PRNQty: 0 RF: 0 propranolol 80 mg capsule,extended release 24 hr 80 mg PO DAILY RF: 0 No Action tizanidine 4 mg tablet 4 mg PO TID PRNRF: 0 nabumetone 500 mg tablet 500 mg PO BID RF: 0 prednisone 20 mg tablet 60 mg PO DAILY 7 Days Qty: 21 RF: 0 gabapentin 300 mg capsule 300 mg PO QHS PRN (Reason: Nerve pain) Qty: 14 RF: 0 Discharge Instructions Instructions: Vertebral Compression Fracture (ED), Cervical Radiculopathy (ED) Additional Instructions: Your laboratory values did not reveal any obvious emergent process but as we discussed your CT imaging revealed a compression fracture at T12, chronic degenerative changes, and narrowing of your cervical spine. Moving forward, I believe that you have multiple options. We discussed continuing your current medications as directed by your primary care provider, I am providing you Percocet to take at night to help you with sleeping and discomfort over the next 4 days, this medication may cause drowsiness and/or constipation. You may want to take [id number] stool softeners while taking the patient. We also discussed outpatient referral to a back specialist, outpatient MRI, nerve conduction studies, etc. may be indicated for further evaluation of your ongoing symptoms. Please watch for new or worsening symptoms and return to the ER for any concerns. Otherwise I recommend reaching out your primary care provider tomorrow to discuss your ER visit, ongoing symptoms, and need for outpatient reevaluation. Discharge Data Discharge Date/Time-TO BE ENTERED AT DEPARTURE: 01/08/21 20:26 Medical Decision Making 45-year-old female reports mid to lower back pain over the past couple of months after falling but now with more pain in her upper back, her right side of neck that radiates down her right arm. Clinically she appears stable, nontoxic, afebrile, neurologically intact, no acute distress. No history of IV drug use, extremely low suspicion for cauda equina, spinal abscess, etc. This does appear to be musculoskeletal in nature but given her symptoms, already being evaluated at the urgent care without relief of her symptoms twice, I would like to further work her potential atypical chest pain, PE, etc. Patient is agreeable to this plan. Given the duration of her symptoms I do believe a single EKG and troponin is reasonable. Laboratory values are unremarkable for obvious emergent process. Troponin unremarkable, D-dimer unremarkable, no indication to pursue CTA of the chest. Chest x-ray unremarkable. I discussed work-up thus far with patient. Patient states that she is concerned that there is something more serious going on and would like a further work-up here in the ER. I did explain to her that the study of choice would be an MRI, and concerned about radiculopathy down the right arm, she also apparently has a lower spinal fracture from 2 months ago. Discussed at this time I could offer her CT imaging of her spine but eventual follow-up through his specialty clinic, MRI, etc. would likely be indicated. Patient would like to move forward with CT imaging. We will also give 60 IM Toradol and Norflex. We discussed her CT images, CT neck does not reveal any acute fracture or subluxation however she does have multilevel mid to moderate neural foraminal stenosis and C4-C6 spinal canal stenosis, there is also an acute mild compression fracture of the superior endplate of T12. At this time patient reports that her discomfort is significantly improved with Toradol and Norflex. She believes that the T12 compression fracture is likely what was found at the other facility in [place] when she had her fall over the past 2 months. Discussed that her CT cervical spine also does not reveal any acute fracture or dislocation, certainly has findings that I do believe warrant MRI given her symptoms down her right arm. Patient has no additional questions or concerns and feels as though she has a good understanding from her imaging today and plans to reach out to her primary care provider tomorrow to discuss the CT findings and need for referral to spinal specialist, pursue MRI, and discuss additional pain control. In the meantime she will continue taking the medications prescribed to her from the urgent care. Patient has no additional questions or concerns and is comfortable discharge. Medical Records Medical records reviewed: Yes I reviewed the patient's medical records. Imaging Data Radiologic Study: Attestation: I personally reviewed and interpreted this imaging study as follows: Imaging: X-Ray Radiologist's impression: XR CHEST 2V PA LATERAL EXAM: XR CHEST 2V PA LATERAL CLINICAL HISTORY: back/R arm pain TECHNIQUE: 2D digital imaging was performed. COMPARISON: CR XR CHEST 2V PA LATERAL from 03/15/2019 FINDINGS: MEDIASTINUM: Normal. HEART: Normal. PULMONARY VASCULATURE: Normal. LUNGS: Clear. PLEURAL SPACE: No pleural effusion or pneumothorax. BONE:Within normal limits for the patient's age. OTHER FINDINGS:Normal. IMPRESSION: No acute pulmonary findings. Radiologic Study #2: Attestation: I personally reviewed and interpreted this imaging study as follows: Imaging: CT Scan Radiologist's impression: EXAM: CT CERVICAL SPINE WO CLINICAL HISTORY: fall/pain/radiates down arm. TECHNIQUE: Imaging Protocol: Axial computed tomography images with coronal and sagittal reformatted images were created and reviewed COMPARISON: CT CT NECK W from 09/27/2019 FINDINGS: Bones: No fracture or dislocations are seen. The alignment of the cervical spine is normal including the cervicovertebral junction and cervicothoracic junction. Moderate multilevel degenerative changes are seen throughout the cervical spine. There is mild central spinal canal stenosis at C4-5 and C5-C6. Multilevel [id number] neural foraminal stenosis is seen at multiple levels in the cervical spine. Soft Tissues: The soft tissues of the neck are unremarkable. The thyroid gland is grossly unremarkable. Lung apices: Clear. IMPRESSION: No acute fracture or subluxation in the cervical spine. Radiologic Study #3: Attestation: I personally reviewed and interpreted this imaging study as follows: Imaging: CT Scan Radiologist's impression: EXAM: CT THORACIC LUMBAR SPINE WO CLINICAL HISTORY: fall/pain. TECHNIQUE: Imaging Protocol: Axial computed tomography images with coronal and sagittal reformatted images were created and reviewed COMPARISON: CT CT NECK W from 09/27/2019 FINDINGS: CT lumbar and thoracic spine: Bones: There is an acute fracture of the superior endplate of T12. No involvement of the posterior elements or retropulsion is noted. There does appear to be a chronic Schmorl's node endplate sclerosis at T12. No other acute fracture or subluxation is seen in the lumbar or thoracic spine. Multilevel degenerative changes are seen throughout the thoracic and lumbar spine. Soft Tissues: There is a 3 mm nonobstructing stone in the midpole of the left kidney. Lung: The visualized lung higginbotham are clear. IMPRESSION: 1. Acute mild compression fracture of the superior endplate of T12. 2. No acute fracture or subluxation in the lumbar spine. Lab Data Lab results reviewed: Yes I reviewed the patient's lab results. Labs: Laboratory Tests Range/Units 01/08/21 01/08/21 01/08/21 17:39 17:39 17:39 WBC (4.4-10.8) 10^3/uL 9.27 RBC (3.93-5.22) 10^6/uL 4.47 Hgb (11.2-15.7) g/dL 13.4 Hct (36.0-46.0) % 40.7 MCV (80-95) fL 91.1 MCH (27.0-33.0) pg 30.0 MCHC (32.0-36.0) % 32.9 RDW (11.7-14.6) % 13.1 Plt Count (130-400) 10^3/uL 337 MPV (8.0-11.0) fL 9.6 Immature Gran % 0.3 Neutrophils % 67.5 Lymphocytes % 21.9 Monocytes % 7.7 Eosinophils % 1.4 Basophils % 1.2 Nucleated RBC % % 0 Absolute Neutrophils (1.2-6.7) 10^3/uL 6.26 Absolute Lymphocytes (1.2-3.4) 10^3/uL 2.03 Absolute Monocytes (0.1-0.8) 10^3/uL 0.71 Absolute Eosinophils (0.0-0.7) 10^3/uL 0.13 Absolute Basophils (0.0-0.2) 10^3/uL 0.11 D-Dimer (<500) ng/mlFEU 288 Sodium (136-145) mmol/L 141 Potassium (3.5-5.1) mmol/L 3.6 Chloride (98-107) mmol/L 104 Carbon Dioxide (21.0-32.0) mmol/L 28.1 Anion Gap (3-11) mmol/L 8.9 BUN (7-18) mg/dL 12 Creatinine (0.55-1.02) mg/dL 0.8 Estimated GFR/1.73 m2 (mL/min/1.73m2) >= 60.00 Glucose (74-106) mg/dL 100 Calcium (8.5-10.1) mg/dL 8.7 Magnesium (1.8-2.4) mg/dL 2.0 Total Bilirubin (0.2-1.0) mg/dL 0.6 AST (15-37) U/L 12 L ALT (14-59) U/L 28 Alkaline Phosphatase (46-116) U/L 84 Troponin I (<0.06) ng/mL < 0.05 Total Protein (6.4-8.2) g/dL 7.0 Albumin (3.4-5.0) g/dL 4.0 Urine Color (Yellow) Urine Clarity (Clear) Urine pH (5-8) Ur Specific [place] (1.005-1.025) Urine Protein (Negative) mg/dL Urine Ketones (Negative) mg/dL Urine Blood (Negative) Urine Nitrite (Negative) Urine Bilirubin (Negative) Urine Urobilinogen (Up TO 0.2) EU/dL Ur Leukocyte Esterase (Negative) Urine RBC (0-2) HPF Urine WBC (0-5) HPF Ur Epithelial Cells (Negative) HPF Urine Crystals (Negative) HPF Urine Bacteria (Negative) HPF Urine Casts (Negative) LPF Urine Mucus (Negative) Ur Culture Indicated? Urine Glucose (Negative) mg/dL Range/Units 01/08/21 17:50 WBC (4.4-10.8) 10^3/uL RBC (3.93-5.22) 10^6/uL Hgb (11.2-15.7) g/dL Hct (36.0-46.0) % MCV (80-95) fL MCH (27.0-33.0) pg MCHC (32.0-36.0) % RDW (11.7-14.6) % Plt Count (130-400) 10^3/uL MPV (8.0-11.0) fL Immature Gran % Neutrophils % Lymphocytes % Monocytes % Eosinophils % Basophils % Nucleated RBC % % Absolute Neutrophils (1.2-6.7) 10^3/uL Absolute Lymphocytes (1.2-3.4) 10^3/uL Absolute Monocytes (0.1-0.8) 10^3/uL Absolute Eosinophils (0.0-0.7) 10^3/uL Absolute Basophils (0.0-0.2) 10^3/uL D-Dimer (<500) ng/mlFEU Sodium (136-145) mmol/L Potassium (3.5-5.1) mmol/L Chloride (98-107) mmol/L Carbon Dioxide (21.0-32.0) mmol/L Anion Gap (3-11) mmol/L BUN (7-18) mg/dL Creatinine (0.55-1.02) mg/dL Estimated GFR/1.73 m2 (mL/min/1.73m2) Glucose (74-106) mg/dL Calcium (8.5-10.1) mg/dL Magnesium (1.8-2.4) mg/dL Total Bilirubin (0.2-1.0) mg/dL AST (15-37) U/L ALT (14-59) U/L Alkaline Phosphatase (46-116) U/L Troponin I (<0.06) ng/mL Total Protein (6.4-8.2) g/dL Albumin (3.4-5.0) g/dL Urine Color (Yellow) Yellow Urine Clarity (Clear) Sl Cloudy Urine pH (5-8) 6.5 Ur Specific [place] (1.005-1.025) >= 1.030 H Urine Protein (Negative) mg/dL Trace H Urine Ketones (Negative) mg/dL Negative Urine Blood (Negative) Negative Urine Nitrite (Negative) Negative Urine Bilirubin (Negative) Negative Urine Urobilinogen (Up TO 0.2) EU/dL 0.2 Ur Leukocyte Esterase (Negative) Negative Urine RBC (0-2) HPF 0-2 Urine WBC (0-5) HPF 3-5 Ur Epithelial Cells (Negative) HPF Many Urine Crystals (Negative) HPF Negative Urine Bacteria (Negative) HPF Many Urine Casts (Negative) LPF Negative Urine Mucus (Negative) Trace Ur Culture Indicated? No/Sq. Contamination Urine Glucose (Negative) mg/dL Negative ECG Data Attestation: I personally reviewed and interpreted this ECG (s) as follows: Interpretation: Please see official report by Dr. Hanna. Sinus rhythm, ventricular of 93. No STEMI. HPI General Mode of arrival: ambulatory . Date/Time Provider Initiated Documentation: 01/08/21 16:57 . Limitations to Documentation: no limitations . Information obtained by: patient . HPI Narrative: This is a 45-year-old female, past medical history that includes anxiety, depression with PTSD, spinal fracture, unsure about level, presenting for evaluation of back pain. Patient states that a couple months ago she had fallen, was seen in an ER in [place], and was told that she had a mid to lower back compression fracture. Never sought any specialty therapy after that time. Since then she has continued to have back pain in that general area but over the past couple weeks her back has begun hurting more, denies any new injury but does report bending, turning, lifting which certainly makes her pain significantly worse. Reports it is tolerable at rest but much worse with movement. She has been seen at the urgent care twice in the past 10 days, given IM injection, steroids, muscle relaxer, then a localized injection and Lidoderm patch. Patient states that these medications are not really helping with her discomfort. The pain is now higher up in her back, into her right neck and trapezius area and shoots down her right arm as well. Reports that she has weakness in her right arm, she is right-hand dominant. She denies fever, history of IV drug use, headache, visual changes, chest pain, shortness of breath abdominal pain, nausea, vomiting, change in bowel or bladder function, pain that radiates down her legs or into her left arm, numbness, tingling. Patient has now been evaluated a couple of times and would like to come to the ER to have a further evaluation, concerned that they cannot thoroughly worked her up at the urgent care. Related Data Home Medications Medication Instructions Recorded Confirmed ibuprofen 400 mg PO Q8H PRN #0 tab 02/02/19 01/11/21 trazodone 100 mg PO HS 02/02/19 01/11/21 propranolol 80 mg PO DAILY 01/08/21 01/11/21 gabapentin 300 mg PO QHS PRN #14 cap 01/11/21 nabumetone 500 mg PO BID 01/11/21 01/11/21 prednisone 60 mg PO DAILY 7 Days #21 tab 01/11/21 tizanidine 4 mg PO TID PRN 01/11/21 01/11/21 Previous Rx's Medication Instructions Recorded ibuprofen 400 mg PO Q8H PRN #0 tab 02/02/19 gabapentin 300 mg PO QHS PRN #14 cap 01/11/21 prednisone 60 mg PO DAILY 7 Days #21 tab 01/11/21 Allergies Allergy/AdvReac Type Severity Reaction Status Date / Time No Known Allergies Allergy Unverified 01/08/21 16:55 General Stated Complaint: Nk/Back Pain YAMILA: 3 Review of Systems Constitutional Constitutional: Denies fever(s) and Denies headache(s) Eyes Eyes: Denies change in vision ENT Ears, Nose, Mouth, and Throat: Denies headache(s) Cardiovascular Cardiovascular: Denies chest pain and Denies dyspnea Respiratory Respiratory: Denies cough and Denies dyspnea Gastrointestinal Gastrointestinal: Denies abdominal pain, Denies nausea and Denies vomiting Genitourinary Genitourinary: Denies hematuria and Denies dysuria Musculoskeletal Musculoskeletal: Reports back pain, Denies arthralgias, Denies numbness and Denies tingling Integumentary/Breasts Skin/Breast: Denies rash Neurologic Neurologic: Denies headache(s), Denies numbness and Denies tingling [facility] Medical History Anxiety Depression PTSD (post-traumatic stress disorder) Surgical History Dilation and curettage (~01/2013) [facility], LAPROSCOPIC Family History Mother Asthma Father Diabetes Heart disease Sister No problems noted. Social History Smoking/Tobacco Use Status: Current every day Tobacco Type: cigarettes Smoking risk assessment performed?: Yes Alcohol Intake: never Drug use: Current Sobriety Substance use type: former substance user and marijuana Duration: 15-30 minutes/day Frequency: 3-4 times per week Seatbelt use: always Helmet use: Yes Helmet use: always Do you feel safe at home: Yes Do you feel safe in your relationship?: Yes Exam Const General: cooperative, healthy appearing, comfortable and no acute distress Orientation: alert and awake HENIN Head: normal to inspection, normocephalic and atraumatic Face and sinus: normal facial exam Mouth: moist mucous membranes Eyes General: appearance normal, both eyes and all related structures Conjunctivae: conjunctivae normal Neck Neck: normal visual inspection, full ROM, no meningeal signs, trachea midline, supple, tender (Diffuse right side, no midline point tenderness) and other (No discomfort with axial load) Resp Effort & Inspection: normal respiratory effort and able to speak in complete sentences Auscultation: clear to auscultation bilaterally Cardio Rate: regular rate Rhythm: regular rhythm GI Palpation: soft and nontender Back/Spine/Pelvis Back: no CVA tenderness and back tenderness Other: Unremarkable visual back inspection. Patient has diffuse discomfort across her upper back between her shoulder blades, worse on the right side. She then has more midline and paravertebral discomfort in her lower thoracic and upper lumbar spine. No step-off. No crepitus. No erythema, warmth. 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 Sensation appears to be intact. Normal capillary refill and radial pulse. Extrem General: normal to inspection, full ROM and capillary refill normal Psych Appearance: grossly normal Mental Status: mental status grossly normal Course Vital Signs Vital signs: Vital Signs Temperature 35.9 C L 01/08/21 16:49 Pulse 100 H 01/08/21 16:49 Respiratory Rate 16 01/08/21 16:49 Blood Pressure 161/84 H 01/08/21 16:49 Pulse Oximetry 98 01/08/21 16:49 Temperature 35.9 C L 01/08/21 16:49 Temperature Source Skin 01/08/21 16:49 Pulse 100 H 01/08/21 16:49 Respiratory Rate 16 01/08/21 16:49 Respiratory Effort Non-Labored 01/08/21 16:49 Blood Pressure 161/84 H 01/08/21 16:49 Pulse Oximetry 98 01/08/21 16:49 Oxygen Delivery Method Room Air 01/08/21 16:49 Oxygen Flow Rate 0 01/08/21 16:49 Pain Level 7 01/08/21 16:49
[2021-01-08 17:46] LABS: Abs Immature Grans 0.03 10^3/uL (0.0-0.06); Absolute Basophil Count 0.11 10^3/uL (0.0-0.2); Absolute Eosinophil Count 0.13 10^3/uL (0.0-0.7); Absolute Lymphocyte Count 2.03 10^3/uL (1.2-3.4); Absolute Monocyte Count 0.71 10^3/uL (0.1-0.8); Absolute Neutrophil Count 6.26 10^3/uL (1.2-6.7); Basophils % 1.2; Eosinophils % 1.4; HCT 40.7 % (36.0-46.0); HGB 13.4 g/dL (11.2-15.7); Immature Grans % 0.3; Lymphocytes % 21.9; MCHC 32.9 % (32.0-36.0); MCV 91.1 fL (80-95); MPV 9.6 fL (8.0-11.0); Monocytes % 7.7; Neutrophils % 67.5; Nucleated RBC 0 %; Platelet Count 337 10^3/uL (130-400); RBC 4.47 10^6/uL (3.93-5.22); RDW 13.1 % (11.7-14.6); RDW-SD 43.9 fL; WBC 9.27 10^3/uL (4.4-10.8)
[2021-01-08 17:58] LABS: Bilirubin Negative (Negative); Blood Negative (Negative); Clarity Sl Cloudy (Clear); Glucose Negative (Negative); Ketones Negative (Negative); Leukocyte Esterase Negative (Negative); Nitrite Negative (Negative); Specific Gravity >= 1.030 (1.005-1.025); Urobilinogen 0.2 EU/dL (Up TO 0.2); pH 6.5 (5-8)
[2021-01-08 18:06] LABS: ALT 28 U/L (14-59); AST 12 U/L (15-37); Alkaline Phosphatase 84 U/L (46-116); Anion Gap 8.9 mmol/L (3-11); BUN 12 mg/dL (7-18); Bilirubin, Total 0.6 mg/dL (0.2-1.0); CO2 28.1 mmol/L (21.0-32.0); CREATININE 0.8 mg/dL (0.55-1.02); Calcium 8.7 mg/dL (8.5-10.1); Chloride 104 mmol/L (98-107); Glucose 100 mg/dL (74-106); Potassium 3.6 mmol/L (3.5-5.1); Sodium 141 mmol/L (136-145); Troponin I < 0.05 ng/mL (<0.06)
[2021-01-08 18:11] LABS: Bacteria Many HPF (Negative); C & S Indicated? No/Sq. Contamination; Casts Negative LPF (Negative); Crystals Negative HPF (Negative); Epithelial Cells Many HPF (Negative); Mucus Trace (Negative); RBC 0-2 HPF (0-2)
[2021-01-08 18:15] LABS: D-Dimer 288 ng/mlFEU (<500)
--- NOTE | 2021-01-08 18:15 | DI.CT_ITS ---
Exam(s) CT THORACIC LUMBAR SPINE WO EXAM: CT THORACIC LUMBAR SPINE WO CLINICAL HISTORY: fall/pain. TECHNIQUE: Imaging Protocol: Axial computed tomography images with coronal and sagittal reformatted images were created and reviewed COMPARISON: CT CT NECK W from 09/27/2019 FINDINGS: CT lumbar and thoracic spine: Bones: There is an acute fracture of the superior endplate of T12. No involvement of the posterior e lements or retropulsion is noted. There does appear to be a chronic Schmorl's node endplate sclerosi s at T12. No other acute fracture or subluxation is seen in the lumbar or thoracic spine. Multilevel degenerative changes are seen throughout the thoracic and lumbar spine. Soft Tissues: There is a 3 mm nonobstructing stone in the midpole of the left kidney. Lung: The visualized lung higginbotham are clear. IMPRESSION: 1. Acute mild compression fracture of the superior endplate of T12. 2. No acute fracture or subluxation in the lumbar spine. RADIATION DOSE DELIVERED: Total DLP Total DLP DATA REPOSITORY: All CT scans at this facility are submitted to the National Radiology Data Registry (NRDR) Dose Index Registry (DIR) with the [employer] (A[employer]). RADIATION OPTIMIZATION: All CT scans at this facility use at least one of these dose optimization te chniques: automated exposure control; mA and/or kV adjustment per patient size (includes targeted exa ms where dose is matched to clinical indication); or iterative reconstruction.
--- NOTE | 2021-01-08 18:15 | DI.CT_ITS ---
Exam(s) CT CERVICAL SPINE WO EXAM: CT CERVICAL SPINE WO CLINICAL HISTORY: fall/pain/radiates down arm. TECHNIQUE: Imaging Protocol: Axial computed tomography images with coronal and sagittal reformatted images were created and reviewed COMPARISON: CT CT NECK W from 09/27/2019 FINDINGS: Bones: No fracture or dislocations are seen. The alignment of the cervical spine is normal including the cervicovertebral junction and cervicothoracic junction. Moderate multilevel degenerative changes are seen throughout the cervical spine. There is mild central spinal canal stenosis at C4-5 and C5-C 6. Multilevel [id number]-[id number] neural foraminal stenosis is seen at multiple levels in the cervical spine. Soft Tissues: The soft tissues of the neck are unremarkable. The thyroid gland is grossly unremarkabl e. Lung apices: Clear. IMPRESSION: No acute fracture or subluxation in the cervical spine. RADIATION DOSE DELIVERED: Total DLP Total DLP DATA REPOSITORY: All CT scans at this facility are submitted to the National Radiology Data Registry (NRDR) Dose Index Registry (DIR) with the [employer] (A[employer]). RADIATION OPTIMIZATION: All CT scans at this facility use at least one of these dose optimization te chniques: automated exposure control; mA and/or kV adjustment per patient size (includes targeted exa ms where dose is matched to clinical indication); or iterative reconstruction.
[2021-01-08] MEDS: Orphenadrine 60 MG/2 ML VIAL IVP (19:13)
[2021-01-08] MEDS: Ketorolac 30 MG/ML VIAL IVP (19:13)
--- NOTE | 2021-01-08 19:19 | DI.VRAD_ITS ---
PROCEDURE INFORMATION: Exam: CT Cervical Spine Without Contrast Exam date and time: 01/08/2021 6:25 PM Age: 45 years old Clinical indication: Injury or trauma; Fall; Blunt trauma TECHNIQUE: Imaging protocol: Computed tomography images of the cervical spine without contrast. COMPARISON: MR CERVICAL SPINE WO 09/27/2019 8:34 AM FINDINGS: Bones/joints: No acute fracture. Normal alignment. Discs/Spinal canal/Neural foramina: Moderate disc space narrowing noted at C3-C4, C4-C5, and C5-C6. Posterior disc osteophyte complexes and uncovertebral spurring noted. Facet arthropathy is relatively minimal. Mild spinal canal stenosis noted at C4-C5 and C5-C6. Mild-moderate neural foraminal narrowing noted through the mid cervical spine. Lungs: Lung apices are normal. Soft tissues: Unremarkable. IMPRESSION: Negative for cervical spine fracture. Dictated and Authenticated by: Erick Silvestre MD. Ordering:PIPO Douglas MD
--- NOTE | 2021-01-08 19:19 | DI.VRAD_ITS ---
PROCEDURE INFORMATION: Exam: XR Chest Exam date and time: 01/08/2021 5:27 PM Age: 45 years old Clinical indication: Other: Back/r arm pain TECHNIQUE: Imaging protocol: XR of the chest. Views: 2 views. COMPARISON: CT CHEST W 04/03/2019 11:28 AM FINDINGS: Lungs: Unremarkable. No consolidation. Pleural spaces: Unremarkable. No pleural effusion. No pneumothorax. Heart/Mediastinum: Unremarkable. No cardiomegaly. Bones/joints: Unremarkable. IMPRESSION: No acute findings. Dictated and Authenticated by: Erick Silvestre MD. Ordering:PIPO Douglas MD
--- NOTE | 2021-01-08 19:28 | DI.VRAD_ITS ---
PROCEDURE INFORMATION: Exam: CT Thoracic Spine Without Contrast Exam date and time: 01/08/2021 6:25 PM Age: 45 years old Clinical indication: Injury or trauma; Fall; Blunt trauma (contusions or hematomas) TECHNIQUE: Imaging protocol: Computed tomography images of the thoracic spine without contrast. COMPARISON: MR CERVICAL SPINE WO 09/27/2019 8:34 AM FINDINGS: Vertebrae: A mild compression fracture at the T12 superior endplate appears acute. An underlying chronic Schmorl's node and endplate sclerosis are noted. There is no retropulsion into the spinal canal. There are no other fractures observed in the thoracic spine. Discs/Spinal canal/Neural foramina: Mild disc space narrowing and osteophyte formation noted throughout the thoracic spine. No significant spinal canal stenosis observed. Mild-moderate neural foraminal narrowing noted at T8-T9, T9-T10, and T10-T11. Soft tissues: Unremarkable. IMPRESSION: Acute compression fracture, T12 superior endplate. PROCEDURE INFORMATION: Exam: CT Lumbar Spine Without Contrast Exam date and time: 01/08/2021 6:25 PM Age: 45 years old Clinical indication: Injury or trauma; Fall; Blunt trauma (contusions or hematomas) TECHNIQUE: Imaging protocol: Computed tomography images of the lumbar spine without contrast. COMPARISON: MR CERVICAL SPINE WO 09/27/2019 8:34 AM FINDINGS: Vertebrae: Negative for fracture in the lumbar spine. Discs/Spinal canal/Neural foramina: Severe facet arthropathy noted at L4-L5 on the right. Mild facet arthropathy noted elsewhere in the lumbar spine. Moderate disc space narrowing with vacuum disc and osteophytes noted at L5-S1. Mild spinal canal stenosis noted L4-L5. Moderate bilateral neural foraminal narrowing noted at L4-L5. Sacrum/coccyx: Sacrum is intact. Coccyx is intact. Soft tissues: Unremarkable. IMPRESSION: 1. Negative fracture in the lumbar spine. 2. Multilevel degenerative disc disease and facet arthropathy, greatest at L4-L5 and L5-S1. Dictated and Authenticated by: Erick Silvestre MD. Ordering:PIPO Douglas MD
== END 2021-01-08 20:26 | disposition home or self-care (01) ==
PROVIDERS: Emergency Provider Physician Assistant; PCP Nurse Practitioner Family
DX: S22.080A Wedge compression fracture of T11-T12 vertebra, initial encounter for closed fracture (principal); X58.XXXA Exposure to other specified factors, initial encounter; M54.12 Radiculopathy, cervical region; M48.02 Spinal stenosis, cervical region
CPT/HCPCS: 80053; 81025; 93005; 96374; 96375; 99285; J2360; 71046; 72125; 72128; 72131; 81003; 81015; 83735; 84484; 85025; 85379; 93010; 99284; J1885

== ENCOUNTER 2021-01-11 21:34 | Emergency (ER) | payer MEDICAID, SELFPAY ==
[2021-01-11 21:38] VITALS: BP 123/75; PULSE 83; RESP 24; TEMP 36.8; O2SAT 100
--- NOTE | 2021-01-11 22:03 | W.ED.GENAD ---
Discharge Plan Disposition Patient Disposition: HOME Condition: Stable Discharge Details Clinical Impression: Radiculopathy of cervical spine Primary Care Provider: Toy Florez ED Provider: Mohini Carter Home Meds and New Rx's Prescriptions: New prednisone 20 mg tablet 60 mg PO DAILY 7 Days Qty: 21 RF: 0 gabapentin 300 mg capsule 300 mg PO QHS PRN (Reason: Nerve pain) Qty: 14 RF: 0 No Action tizanidine 4 mg tablet 4 mg PO TID PRNRF: 0 nabumetone 500 mg tablet 500 mg PO BID RF: 0 trazodone 50 mg Tablet 100 mg PO HS RF: 0 ibuprofen 400 mg Tablet 400 mg PO Q8H PRNQty: 0 RF: 0 propranolol 80 mg capsule,extended release 24 hr 80 mg PO DAILY RF: 0 Discharge Instructions Instructions: Cervical Radiculopathy (ED) Additional Instructions: Take prednisone and gabapentin as directed. Prescriptions were sent to the pharmacy we have on file for you. You were given the first doses here tonight. Take the prednisone 1 day in the a.m. Take the gabapentin once before bedtime. It may cause you to be sleepy or dizzy. I do recommend that you get an MRI in the near future. Please call your primary care provider's office tomorrow to discuss this. I am going to refer you also to physical therapy and the pain clinic which is located here at [facility]. They may be able to do some noninvasive and nonsurgical things to alleviate your symptoms. Stand Alone Forms: Physical Therapy Referral Referrals: [facility] [OTHER] - PAIN CLINIC,[facility] [OTHER] - 1 week (Cervical Radiculopathy) Toy Florez NP [Primary Care Provider] - Medical Decision Making 45-year-old female presents the ER chief complaint of right shoulder pain which radiates down into her right arm. She was seen in the ER recently 01/08/[address] of her C and T-spine at that time and was diagnosed with cervical spine radiculopathy and compression fracture of the T12 posterior thoracic spine. She reports initial injury 2 months ago she slipped on a wet floor landing on her bottom. She reports that 1 month ago she was seen in [place] and had a work-up for chest pain. At that time they did see the compression fracture of T12 and diagnosed her with that. She reports increasing pain over the last 1-1/2 to 2 weeks has been seeing multiple times by primary care and have been given multiple different medications including a 3-day stent of 20 mg tablets of prednisone, Flexeril,. She is currently taking nabumetone 500 mg twice daily, ibuprofen 4 mg every 8 hours as needed, tizanidine 4 mg 3 times a day and trazodone 100 mg at bedtime she did not take the trazodone prior to arrival. Last took the nabumetone 2 hours prior to arrival. She denies any loss of bowel or bladder control, she denies any chest pain shortness of breath she does have some mild paresthesias noted and tingling with sharp shooting pain into her right shoulder no weakness noted on exam to her right upper extremity. 2213: Temperature, circulation within normal limits to both upper extremities, informed by staffing recruiter that patient is in room with both arms up over her head rubbing the back of her scalp in order to try to improve her pain. At this time patient does have some mild to moderate foraminal stenosis on C3-C6 as noted on previous CT imaging report. I do believe that patient does need an MRI which could be performed non emergently as an outpatient basis. At this time prednisone 60 mg p.o., gabapentin 300 mg p.o. and Toradol 30 mg IM ordered. If this improves patient's symptoms will place patient on 5 to 7-day stent of prednisone and given a prescription for gabapentin with instructions on use. I will give patient a referral for the pain clinic and physical therapy referral to recommend non-invasive, non surgical interventions if appropriate. I will reiterate the importance of contacting primary care provider to obtain a MRI. Upon patient reevaluation she appears much more comfortable. I did discuss follow-up to physical therapy and pain clinic and use of gabapentin she does verbalize understanding. She does agree to call primary care to set up appointments for further work-up possible MRI as an outpatient. This text was generated using 9Cookiesation system, please disregard any oddities of phrase or misspellings. HPI General Mode of arrival: ambulatory. Date/Time Provider Initiated Documentation: 01/11/21 21:43. Limitations to Documentation: no limitations. Information obtained by: patient, RN notes reviewed and old records reviewed. HPI Narrative: 45-year-old female presents the ER chief complaint of right shoulder pain which radiates down into her right arm. She was seen in the ER recently 01/08/[address] of her C and T-spine at that time and was diagnosed with cervical spine radiculopathy and compression fracture of the T12 posterior thoracic spine. She reports initial injury 2 months ago she slipped on a wet floor landing on her bottom. She reports that 1 month ago she was seen in [place] and had a work-up for chest pain. At that time they did see the compression fracture of T12 and diagnosed her with that. She reports increasing pain over the last 1-1/2 to 2 weeks has been seeing multiple times by primary care and have been given multiple different medications including a 3-day stent of 20 mg tablets of prednisone, Flexeril,. She is currently taking nabumetone 500 mg twice daily, ibuprofen 4 mg every 8 hours as needed, tizanidine 4 mg 3 times a day and trazodone 100 mg at bedtime she did not take the trazodone prior to arrival. Last took the nabumetone 2 hours prior to arrival. She denies any loss of bowel or bladder control, she denies any chest pain shortness of breath she does have some mild paresthesias noted and tingling with sharp shooting pain into her right shoulder no weakness noted on exam to her right upper extremity. Related Data Home Medications Medication Instructions Recorded Confirmed ibuprofen 400 mg PO Q8H PRN #0 tab 02/02/19 01/11/21 trazodone 100 mg PO HS 02/02/19 01/11/21 propranolol 80 mg PO DAILY 01/08/21 01/11/21 gabapentin 300 mg PO QHS PRN #14 cap 01/11/21 nabumetone 500 mg PO BID 01/11/21 01/11/21 prednisone 60 mg PO DAILY 7 Days #21 tab 01/11/21 tizanidine 4 mg PO TID PRN 01/11/21 01/11/21 Previous Rx's Medication Instructions Recorded ibuprofen 400 mg PO Q8H PRN #0 tab 02/02/19 gabapentin 300 mg PO QHS PRN #14 cap 01/11/21 prednisone 60 mg PO DAILY 7 Days #21 tab 01/11/21 Allergies Allergy/AdvReac Type Severity Reaction Status Date / Time No Known Allergies Allergy Unverified 01/08/21 16:55 General Stated Complaint: Orthopedic YAMILA: 4 Review of Systems All systems reviewed & are unremarkable except as noted in HPI and below Constitutional Constitutional: Denies weakness ENT Ears, Nose, Mouth, and Throat: Reports neck pain Cardiovascular Cardiovascular: Denies chest pain and Denies dyspnea Respiratory Respiratory: Denies dyspnea Gastrointestinal Gastrointestinal: Denies tenesmus, Denies change in stool character and Denies constipation Comments: Denies loss of bowel or bladder control Genitourinary Genitourinary: Denies difficulty voiding Comments: Denies any incontinence Musculoskeletal Musculoskeletal: Reports back pain, Denies limited range of motion, Denies muscle weakness, Reports neck pain, Reports numbness (worse on the right upper extremity), Reports radiating pain into limb and Reports tingling Neurologic Neurologic: Reports as per HPI, Reports numbness (worse on the right upper extremity), Reports tingling, Reports paresthesias (Right upper extremity) and Denies weakness FOR[facility], [facility] Medical History (Updated 01/11/21 @ 22:47 by Mohini Carter) Anxiety Depression PTSD (post-traumatic stress disorder) Surgical History Dilation and curettage (~01/2013) [facility], LAPROSCOPIC Family History Mother Asthma Father Diabetes Heart disease Sister No problems noted. Social History Smoking/Tobacco Use Status: Current every day Tobacco Type: cigarettes Smoking risk assessment performed?: Yes Alcohol Intake: never Drug use: Current Sobriety Substance use type: former substance user and marijuana Duration: 15-30 minutes/day Frequency: 3-4 times per week Seatbelt use: always Helmet use: Yes Helmet use: always Do you feel safe at home: Yes Do you feel safe in your relationship?: Yes Exam Narrative Exam Narrative: Constitutional: Alert and oriented x3. Appears stated age. Normal body habitus. Head: Normocephalic, no trauma. Eyes: Pupils PERRLA, Red reflex noted, EOM's intact. Eyelids symmetrical without lesions, discharge, or swelling. ENT: Bilateral TM's WNL, External ear normal to inspection, no mastoid TTP, swelling, or erythema, Nasal turbinates WNL, no nasal discharge. Normal dentition, Posterior pharynx WNL, no exudate. Chest: RRR, Normal S1, S2, distal pulses intact. Resp: Lungs clear to auscultation bilaterally, no wheezes, rales, or rhonchi. Musculoskeletal: Normal gait, 5/5 strength to all four extremities. Please see neuro exam below Skin: No suspicious rashes or lesions. Capillary refill less than 2 sec. Neurologic: Cranial nerves II-XII intact. Alert and oriented x 3. DTR's intact. Hematologic/Lymphatic: No ecchymosis, no lymphadenopathy. Neuro General: patient alert, patient awake, patient oriented x3, gait normal and moves all extremities Cognition: normal cognition Speech: speech normal Gait: normal gait Motor: strength 5/5 throughout, no movement abnormalities noted, fasciculations noted and normal tone Sensory Exam: upper extremity right light-touch abnormal in a dermatomal distribution and decreased (Mildly) Coordination: rapid alternating movement UE normal Course Vital Signs Vital signs: Vital Signs Temperature 36.8 C 01/11/21 21:38 Pulse 83 01/11/21 21:38 Respiratory Rate 24 01/11/21 21:38 Blood Pressure 123/75 01/11/21 21:38 Pulse Oximetry 100 01/11/21 21:38 Temperature 36.8 C 01/11/21 21:38 Temperature Source Temporal Artery Scan 01/11/21 21:38 Pulse 83 01/11/21 21:38 Respiratory Rate 24 01/11/21 21:38 Respiratory Effort 01/11/21 21:41 Blood Pressure 123/75 01/11/21 21:38 Blood Pressure Position Sitting 01/11/21 21:38 Pulse Oximetry 100 01/11/21 21:38 Oxygen Delivery Method Room Air 01/11/21 21:38 Oxygen Flow Rate 0 01/11/21 21:38 Pain Level 10 01/11/21 21:38
[2021-01-11] MEDS: Ketorolac 30 MG/ML VIAL IM (22:06)
[2021-01-11] MEDS: predniSONE 20 MG TAB 60 MG PO (22:07)
[2021-01-11] MEDS: Gabapentin 300 MG CAP PO (22:07)
--- NOTE | 2021-01-11 22:40 | NUR.NOTE ---
Nursing Notereferal sent to sandi to get mri ordered for patient nerve pain 01/11/21:
== END 2021-01-11 22:45 | disposition home or self-care (01) ==
PROVIDERS: Emergency Provider Registered Nurse Emergency; PCP Nurse Practitioner Family
DX: M54.12 Radiculopathy, cervical region (principal)
CPT/HCPCS: 96372; 99284; 99283; J1885; J7512

== ENCOUNTER 2021-02-18 11:47 | Outpatient (REF) | payer MEDICAID, SELFPAY ==
[2021-02-19 11:52] LABS: COVID-19 RT-PCR UVMMC Result Negative (Negative)
== END 2021-02-18 11:48 | disposition home or self-care (01) ==
LOC: LBN 11:47
PROVIDERS: PCP Nurse Practitioner Family; Referring Provider Physician Assistant Medical; Visit Provider Physician Assistant Medical
DX: Z20.822 Contact with and (suspected) exposure to COVID-19 (principal); J06.9 Acute upper respiratory infection, unspecified
CPT/HCPCS: U0003

== ENCOUNTER 2021-03-25 19:51 | Emergency (ER) | payer MEDICAID, SELFPAY ==
[2021-03-25 19:52] VITALS: BP 133/69; PULSE 94; RESP 16; TEMP 36.3; O2SAT 94
--- NOTE | 2021-03-25 19:59 | ED.GENADUL_ITS ---
Discharge Plan Disposition Patient Disposition: HOME Condition: Good Discharge Details Clinical Impression: Arm laceration Primary Care Provider: Toy Florez ED Provider: Mallika Kraus Home Meds and New Rx's Prescriptions: Continued trazodone 50 mg Tablet 100 mg PO HS RF: 0 Discharge Instructions Instructions: Laceration (ED) Additional Instructions: Keep wound clean, dry, covered. You may shower and then pat your arm dry. Please keep covered with a Band-Aid. Monitor for signs infection including redness, warmth, drainage, increased pain, fever/chills. If you develop these or other new/worsening symptoms please seek care urgently once again. Tylenol and/or Ibuprofen as needed for discomfort. Please return in 10 days for suture removal. Referrals: Toy Florez, WIRE TWISTING MACHINE OPERATOR [Primary Care Provider] - Discharge Data Discharge Date/Time-TO BE ENTERED AT DEPARTURE: 03/25/21 22:04 Medical Decision Making Patient is a pleasant 45-year-old [id number] female presenting today with chief complaint of laceration to the left arm. She reports a prior to arrival she tripped over some shoes in her home and fell through a glass plate window. Suffered lacerations to the left upper extremity. Denies other injury at the time of the incident. Will need updated tetanus. Denies any numbness or tingling. On exam, patient appears very anxious. She has 3 large very superficial abrasions that run up the medial aspect of the upper forearm. There is no deep structure involvement. No glass is noted. To this, over the distal radius along the anterior aspect of the wrist, is a 4 cm linear laceration. This is into the subcutaneous tissue. She is full range of motion of the wrist. 5 out of 5 inspector assemblies and installations strength. 2+ distal pulses. No active bleeding. Intact capillary re fill. Sensation is intact. Do not see any evidence to suggest an obstruction or deep structure involvement. We will give Tylenol and ibuprofen to help with discomfort. Will obtain x-rays to evaluate for any large foreign body that may be retained. FINDINGS: Bones/joints: Normal. No fracture or dislocation. No significat arthropathic changes. Soft tissues: There appears to be a soft tissue laceration adjacent to the radial head. There is no retained foreign body. IMPRESSION: Soft tissue trauma with no bony injury. Discussed findings with the patient. We discussed risks/benefits of suture closure of deeper wound. He voices understanding and wishes to proceed. Please see procedure note. Wound was explored to base in a bloodless feild. No FB or debris noted. Patient tolerated the procedure well. We discussed wound care in depth. Return precautions discussed. All of her questions and concerns were addressed, she is in agreement with this plan. HPI General Mode of arrival: ambulatory . Date/Time Provider Initiated Documentation: 03/25/21 19:59 . Limitations to Documentation: no limitations . Information obtained by: patient and RN notes reviewed . History of Present Illness 45 year old F presents to the emergency department with the chief complaint of left arm laceration, described as severe, with intensity rated at 10. Quality is described as stabbing, and is localized to the left and upper extremity. Patient reports no radiation. Patient started experiencing this minute(s) and it has been constant. No relieving factors improve symptom(s), No exacerbating factors reported . Patient notes no other symptoms.. Patient did receive the following treatments prior to arrival, none Related Data Home Medications Medication Instructions Recorded Confirmed trazodone 100 mg PO HS 02/02/19 03/25/21 Allergies Allergy/AdvReac Type Severity Reaction Status Date / Time No Known Allergies Allergy Unverified 03/25/21 19:59 General Stated Complaint: Laceration YAMILA: 3 Review of Systems Constitutional Constitutional: Reports as per HPI, Denies chills, Denies fever(s) and Denies headache(s) (patient denies striking her head) ENT Ears, Nose, Mouth, and Throat: Denies headache(s) (patient denies striking her head) Musculoskeletal Musculoskeletal: Reports as per HPI Integumentary/Breasts Skin/Breast: Reports as per HPI Neurologic Neurologic: Reports as per HPI, Denies headache(s) (patient denies striking her head), Denies sensory deficit and Denies paresthesias [facility] Medical History (Updated 03/25/21 @ 21:40 by ANDRE Stevenson) Anxiety Depression PTSD (post-traumatic stress disorder) Surgical History Dilation and curettage (~01/2013) [facility], LAPROSCOPIC Family History Mother Asthma Father Diabetes Heart disease Sister No problems noted. Social History Smoking/Tobacco Use Status: Current every day Tobacco Type: cigarettes Smoking risk assessment performed?: Yes Alcohol Intake: never Drug use: Current Sobriety Substance use type: former substance user and marijuana Duration: 15-30 minutes/day Frequency: 3-4 times per week Seatbelt use: always Helmet use: Yes Helmet use: always Do you feel safe at home: Yes Do you feel safe in your relationship?: Yes Exam Const General: cooperative, healthy appearing, uncomfortable, no acute distress, well developed and anxious (patient appears very anxious, breathing very quickly) Nutritional Appearance: well nourished and overweight Orientation: alert and awake HENMN Head: normal to inspection, no palpable skull fracture and normocephalic Resp Effort & Inspection: able to speak in complete sentences, no respiratory distress and tachypneic Cardio Rate: tachycardic Rhythm: regular rhythm Skin Trauma: abrasion and laceration Neuro General: patient alert and patient awake Cognition: normal cognition Speech: speech normal Gait: normal gait Sensory Exam: no sensory deficits noted Extrem Elbow/forearm/wrist images: 1. 4cm laceration into the subq tissue. No active bleeding. 2+ distal pulses. sensation intact. Full ROM of fingers and wrist. Deep structures intact. No FB in wound. 2. Area of superficial abrasions. No deep structure involvement, no active bleeding. Full ROM of elbow Psych Appearance: grossly normal and well kempt Mental Status: mental status grossly normal Speech and Movement: speech and movement normal Course Vital Signs Vital signs: Vital Signs Temperature 36.3 C L 03/25/21 19:52 Pulse 94 H 03/25/21 19:52 Respiratory Rate 16 03/25/21 19:52 Blood Pressure 133/69 03/25/21 19:52 Pulse Oximetry 94 03/25/21 19:52 Temperature 36.3 C L 03/25/21 19:52 Temperature Source Skin 03/25/21 19:52 Pulse 94 H 03/25/21 19:52 Respiratory Rate 16 03/25/21 19:52 Blood Pressure 133/69 03/25/21 19:52 Pulse Oximetry 94 03/25/21 19:52 Oxygen Delivery Method Room Air 03/25/21 19:52 Oxygen Flow Rate 0 03/25/21 19:52 Pain Level 10 03/25/21 19:52 Comment 03/25/21 19:52 Procedures Laceration Laceration 1: Site: upper extremity Side (If applicable): left Size (cm): 4 Description: linear Depth: simple, single layer Local Anesthetic: Lidocaine 1% and with Epi Amount of anesthesia used (mL): 7 Pre-repair: wound explored, irrigated extensively and deep structures intact Skin layer closed with: nylon Size (cm): 5-0 Number of sutures: 5 Technique: simple, interrupted
--- NOTE | 2021-03-25 20:00 | DI.RAD_ITS ---
Exam(s) XR WRIST LT COMPLETE EXAM: XR WRIST LT COMPLETE CLINICAL HISTORY: evaluate for FB after fall TECHNIQUE: COMPARISON: No exams were available for comparison FINDINGS: Three views were obtained. The patient reportedly has a laceration of the wrist. There is no underl re bony abnormality seen. No foreign body identified. IMPRESSION: RADIATION DOSE DELIVERED: Total DLP
[2021-03-25] MEDS: Ibuprofen 600 MG TAB PO (20:17)
[2021-03-25] MEDS: Acetaminophen 325 MG TAB 650 MG PO (20:18)
--- NOTE | 2021-03-25 21:32 | DI.VRAD_ITS ---
PROCEDURE INFORMATION: Exam: XR Left Wrist Exam date and time: 03/25/2021 8:10 PM Age: 45 years old Clinical indication: Other: Laceration TECHNIQUE: Imaging protocol: XR Left wrist. Views: 3 or more views. COMPARISON: CR LEFT MIDDLE FINGER 03/24/2014 12:57 FINDINGS: Bones/joints: Normal. No fracture or dislocation. No significat arthropathic changes. Soft tissues: There appears to be a soft tissue laceration adjacent to the radial head. There is no retained foreign body. IMPRESSION: Soft tissue trauma with no bony injury. Dictated and Authenticated by: Gilbert Sifuentes MD. Ordering:BELIA Tena MD
[2021-03-25 21:49] VITALS: RESP 18
== END 2021-03-25 22:04 | disposition home or self-care (01) ==
PROVIDERS: Emergency Provider Physician Assistant; PCP Nurse Practitioner Family
DX: S51.812A Laceration without foreign body of left forearm, initial encounter (principal); W01.198A Fall on same level from slipping, tripping and stumbling with subsequent striking against other object, initial encounter; W25.XXXA Contact with sharp glass, initial encounter
CPT/HCPCS: 12002; 90471; 99281; 73110

== ENCOUNTER → 2021-08-21 03:04 | Outpatient (CLI) | payer MEDICAID, SELFPAY | PROVIDERS: PCP Nurse Practitioner Family; Visit Provider Family Medicine ==

== ENCOUNTER 2021-09-15 15:22 | Outpatient (REF) | payer BC, MEDICAID, SELFPAY ==
[2021-09-15 17:10] LABS: Hemoglobin A1C 5.4 % (<5.7)
[2021-09-15 18:20] LABS: Anion Gap 12.4 mmol/L (3-11); BUN 9 mg/dL (7-18); CO2 22.6 mmol/L (21.0-32.0); CREATININE 0.6 mg/dL (0.55-1.02); Calcium 8.8 mg/dL (8.5-10.1); Calculated LDL 124 mg/dL (<100); Chloride 103 mmol/L (98-107); Cholesterol 193 mg/dL (<200); Glucose 85 mg/dL (74-106); HDL Cholesterol 53 mg/dL (40-60); Potassium 4.3 mmol/L (3.5-5.1); Sodium 138 mmol/L (136-145); Triglyceride 84 mg/dL (<150); Vitamin B12 196 pg/mL (193-986)
[2021-09-16 11:55] LABS: Hepatitis C Ab w Rflx HCV PCR Negative (Negative)
== END 2021-09-15 15:23 | disposition home or self-care (01) ==
LOC: NCHCN 15:22
PROVIDERS: PCP Nurse Practitioner Family; Visit Provider Family Medicine
DX: E53.8 Deficiency of other specified B group vitamins (principal); Z13.1 Encounter for screening for diabetes mellitus; I10 Essential (primary) hypertension; Z11.59 Encounter for screening for other viral diseases; Z13.220 Encounter for screening for lipoid disorders
CPT/HCPCS: 80048; 80061; 86803; 82607; 83036

== ENCOUNTER 2023-02-28 18:05 | Outpatient (REF) | payer BC, SELFPAY ==
--- NOTE | 2023-02-28 16:00 | PAPFT_PTH ---
PATIENT: Ara Rutledge LOC: [facility]#:[id number] AGE/SX: 47/F ROOM: RE02/28/[address]: Juan Savage : 1975 BED: DIS: 02/28/2023 SPEC #: [id number] RECD: 02/28/23 18:08 STATUS: STAR REQ #: [id number] SUSANNA: 02/28/23 16:[address]: Juan Savage DEPT: [facility] Cytology RECD BY: Maura Bethea Tissues: 1 - CX/ENDOCX FOR PAP SMEARS Procedures: PAP THIN PREP/UVM Screening HPV DNA PROBE Comments: [id number]
[2023-02-28 19:45] LABS: HCT 39.4 % (36.0-46.0); HGB 13.1 g/dL (11.2-15.7); MCH 29.2 pg (27.0-33.0); MCHC 33.2 % (32.0-36.0); MCV 88 fL (80-95); MPV 10.8 fL (8.0-11.0); Platelet Count 313 10^3/uL (130-400); RBC 4.48 10^6/uL (3.93-5.22); RDW 12.9 % (11.7-14.6); RDW-SD 41.6 fL; WBC 8.29 10^3/uL (4.4-10.8)
[2023-02-28 20:16] LABS: Anion Gap 8.8 mmol/L (3-11); BUN 9 mg/dL (7-18); CO2 26.2 mmol/L (21.0-32.0); CREATININE 0.8 mg/dL (0.55-1.02); Chloride 102 mmol/L (98-107); Estimated GFR 91.97 (mL/min/1.73m2); Glucose 95 mg/dL (74-106); Potassium 4.1 mmol/L (3.5-5.1); Sodium 137 mmol/L (136-145); TSH (W/Ref FT4) 2.02 uIU/mL (0.36-3.74); Vitamin B12 169 pg/mL (193-986)
[2023-03-02 10:37] LABS: Syphilis Serology (RPR) Negative (Negative)
== END 2023-02-28 18:06 | disposition home or self-care (01) ==
LOC: NCHCN 18:05
PROVIDERS: Visit Provider Family Medicine
DX: R41.3 Other amnesia (principal); E53.8 Deficiency of other specified B group vitamins; I10 Essential (primary) hypertension; Z11.3 Encounter for screening for infections with a predominantly sexual mode of transmission; Z12.4 Encounter for screening for malignant neoplasm of cervix; Z00.00 Encounter for general adult medical examination without abnormal findings; Z11.51 Encounter for screening for human papillomavirus (HPV)
CPT/HCPCS: 80048; 85027; 88142; 82607; 84443; 86592; 87624

== ENCOUNTER → 2023-04-11 02:41 | Outpatient (CLI) | payer BC, SELFPAY ==
--- NOTE | 2023-04-11 | DI.MRI_ITS ---
Exam(s) MR BRAIN WO/W EXAM: MR BRAIN WO/W CLINICAL HISTORY: EXPRESSIVE DYSPHAGIA, R47.01, MEMORY IMPAIRMENT, R41.3. TECHNIQUE: Multiplanar multisequence MRI of the brain was performed. CONTRAST MATERIAL: IV Contrast: ML of Dotarem contrast administered. COMPARISON: No exams were available for comparison FINDINGS: VENTRICLES AND EXTRA AXIAL SPACES: Normal in size and morphology for the patient's age. HEMORRHAGE: None. CEREBRAL PARENCHYMA: No focus of restricted diffusion to suggest acute infarct. No space-occupying le alfie identified. No abnormal white matter foci. MIDLINE SHIFT: None. BRAINSTEM/CEREBELLUM: Normal. CALVARIUM: Normal. ENHANCEMENT: No suspicious enhancement identified. VISUALIZED PARANASAL SINUSES/MASTOIDS: Clear. OTHER FINDINGS: None. IMPRESSION: Unremarkable MRI of the brain. DATA REPOSITORY:
[2023-04-11] MEDS: Gadoterate meglumine 20 ML SYRINGE IVP (14:45)
[2023-04-11] MEDS: Normal Saline Flush 10 ML SYR IVP (14:45)
== END ==
PROVIDERS: Visit Provider Family Medicine
DX: R47.01 Aphasia (principal); R41.3 Other amnesia
CPT/HCPCS: 70553

== ENCOUNTER → 2023-04-18 00:37 | Outpatient (CLI) | payer BC, SELFPAY ==
--- NOTE | 2023-04-18 14:11 | DI.RAD_ITS ---
Exam(s) XR HIP RT COMPLETE AP PELVIS EXAM: XR HIP RT COMPLETE AP PELVIS CLINICAL HISTORY: RT HIP PAIN M25.551. TECHNIQUE: 2D digital imaging was performed of the right hip. Two images were obtained. AP pelvis a nd lateral right hip views were obtained. COMPARISON: No exams were available for comparison FINDINGS: BONES: No acute fracture is present. No bony destructive lesion is seen. JOINTS: No dislocation present. Mild joint space narrowing is seen in the hips bilaterally. The sacr oiliac joints and symphysis pubis are unremarkable degenerative changes are seen in the lower lumbar spine. SOFT TISSUE: Normal. IMPRESSION: Mild narrowing of the hip joints bilaterally. DATA REPOSITORY: RADIATION DOSE DELIVERED:
== END ==
PROVIDERS: Visit Provider Family Medicine
DX: M25.551 Pain in right hip (principal)
CPT/HCPCS: 73502

== ENCOUNTER → 2023-07-19 03:22 | Outpatient (CLI) | payer BC, SELFPAY ==
--- NOTE | 2023-07-19 08:00 | DI.MRI_ITS ---
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 There is a an area of sclerosis and slight flattening at the superior femoral head. No discrete fracture in the femoral neck region. The marrow signal elsewhere is normal. Joints: small right hip joint effusion. Degenerative changes of both hips. No definite findings to suggest femoroacetabular impingement. The SI joints and symphysis pubis are well maintained. Musculotendinous structures: Musculotendinous structures demonstrate no abnormality. Soft tissues: Some soft tissue edema seen around the right hip. Intrapelvic structures demonstrate no significant abnormality. 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 Small joint effusion surrounding soft tissue edema. DATA REPOSITORY:
== END ==
PROVIDERS: PCP Family Medicine; Visit Provider Student in an Organized Health Care Education/Training Program
DX: M25.851 Other specified joint disorders, right hip (principal); M25.451 Effusion, right hip; M16.0 Bilateral primary osteoarthritis of hip
CPT/HCPCS: 73721

== ENCOUNTER 2023-08-12 02:53 | Outpatient (CLI) | payer BC, SELFPAY ==
[2023-08-12 10:53] LABS: HCT 38.8 % (36.0-46.0); HGB 12.8 g/dL (11.2-15.7); MCH 28.6 pg (27.0-33.0); MCV 87 fL (80-95); Platelet Count 306 10^3/uL (130-400); RBC 4.47 10^6/uL (3.93-5.22); RDW 13.2 % (11.7-14.6); RDW-SD 41.8 fL; WBC 9.31 10^3/uL (4.4-10.8)
[2023-08-12 11:29] LABS: Anion Gap 8.3 mmol/L (3-11); BUN 11 mg/dL (7-18); CO2 28.7 mmol/L (21.0-32.0); CREATININE 0.9 mg/dL (0.55-1.02); Calcium 8.9 mg/dL (8.5-10.1); Chloride 103 mmol/L (98-107); Estimated GFR 79.85 (mL/min/1.73m2); Glucose 108 mg/dL (74-106); Potassium 3.7 mmol/L (3.5-5.1); Sodium 140 mmol/L (136-145)
== END 2023-08-12 02:54 | disposition home or self-care (01) ==
LOC: LBO 02:53
PROVIDERS: PCP Family Medicine; Visit Provider Student in an Organized Health Care Education/Training Program
DX: M87.051 Idiopathic aseptic necrosis of right femur (principal); Z01.818 Encounter for other preprocedural examination
CPT/HCPCS: 36415; 80048; 85027

== ENCOUNTER 2023-08-12 10:18 | Outpatient (CLI) | payer BC, SELFPAY ==
--- NOTE | 2023-08-12 10:00 | DI.RAD_ITS ---
Exam(s) XR PELVIS AP EXAM: XR PELVIS AP CLINICAL HISTORY: PRE OP R KRISTIAN. TECHNIQUE: 2D digital imaging was performed. Single AP view. COMPARISON: CR XR HIP RT COMPLETE AP PELVIS from 04/18/2023 FINDINGS: BONES: No acute fracture is present. No bony destructive lesion is seen. Slight flattening of the rig ht femoral head. JOINTS: No dislocation present.Moderate right hip joint space narrowing. No left hip joint space romie rowing. SOFT TISSUE: Normal. IMPRESSION: Moderate to severe degenerative changes of the right hip. DATA REPOSITORY: RADIATION DOSE DELIVERED:
== END 2023-08-12 10:19 | disposition home or self-care (01) ==
LOC: DIORS 10:19
PROVIDERS: PCP Family Medicine; Referring Provider Family Medicine; Visit Provider Physician Assistant
DX: M87.051 Idiopathic aseptic necrosis of right femur (principal)
CPT/HCPCS: 72170

== ENCOUNTER 2023-08-24 10:26 | Day surgery (SDC) | payer BC, SELFPAY ==
[2023-08-24] VITALS (9 sets, daily range): BP systolic 98–169; BP diastolic 59–94; PULSE 58–85; RESP 14–23; TEMP 36.4–36.6; O2SAT 93–99; BMI 43.2
--- NOTE | 2023-08-24 07:28 | PDOC.DSDIS_ITS ---
Date of service: 08/24/23 Time of Service: 07:28 Discharge Plan Disposition Patient Disposition: Home Condition: Good Discharge Details Reason For Visit: R THR Attending Provider: Deniz Tavera Primary Care Provider: Juan Savaeg Home Meds and New Rx's Prescriptions: New acetaminophen 500 mg tablet 1,000 mg PO TID Qty: 90 3RF aspirin 81 mg tablet,delayed release (DR/EC) 81 mg PO BID Qty: 60 0RF celecoxib 200 mg capsule 200 mg PO BID Qty: 60 0RF pantoprazole 40 mg tablet,delayed release (DR/EC) 40 mg PO DAILY Qty: 30 0RF dexamethasone 4 mg tablet 4 mg PO DAILY Qty: 2 0RF oxycodone 5 mg tablet 5 mg PO Q4H MDD 6 tabs PRN (Reason: pain) Qty: 20 0RF Discontinued hydrocodone-acetaminophen 5-325 mg tablet 1 tab PO BID MDD 2 tabs PRN (Reason: pain) Qty: 30 0RF Discharge Instructions Additional Instructions: Total Hip Discharge Instructions Activity: The most important activity is to walk. You should try to take short walks a few times a day. You have no restrictions on movement or positioning, but do not try to force what you do. You will find some stiffness and weakness with hip flexion (lifting your knee). Do not try to strengthen this too early, continue to practice walking and stairs and this will come. - Outpatient physical therapy can be helpful to help return you to a normal gait and improve your flexibility and strength. This can start around 2 weeks. For some patients, it?s not necessary. Usually this is determined at the time of discharge or at the first post-operative visit. - You should wear the MOSES hose on both legs for 2 weeks. Dressing: Keep the surgical dressing in place for at least one week. After the first week it may be removed and replace with light gauze and tape or nothing. It may get wet after 3 days but avoid soaking the dressing. If it gets wet, j ust lightly pat dry. It is important to always keep some gauze between skin folds, especially when you are sitting. Spend some time with the wound exposed when you are lying flat as the incision does wrinkle onto itself. Medications: - You should take Tylenol and an anti-inflammatory Celebrex as your primary pain control medications. If the Celebrex is too expensive or not covered, please call the office for another alternative (Advil/Ibuprofen or Naproxen/Aleve). - You have been prescribed a stronger pain medication Oxycodone for breakthrough pain, take as needed as prescribed. - You have also been prescribed a stomach acid reduction agent Pantoprozole to help reduce stomach acid and reflux. - You have also been prescribed Decadron to help with post-operative nausea and pain. You will take this for two days starting tomorrow. - You will be taking Aspirin 81mg twice a day for DVT prevention unless instructed otherwise. - If you have constipation you should take Colace or Miralax (both [id number]). It takes most people 3-4 days to have a bowel movement. Follow-up: 2 weeks If you have any acute concerns or questions, please do not hesitate to contact the office at [phone]. You may contact Dr. Tavera with any questions after hours through the hospital at [phone] or on his cell phone at [phone]. Referrals: Deniz Tavera MD [ [facility] STAFF PHYSICIAN] - Equipment/Supplies: Walker Activity:: Activity as Tolerated Shower/Bathe:: 72 hours Diet:: As Tolerated DS: Diagnosis Discharge Diagnosis (1) Avascular necrosis of bone of right hip: Status: Acute (2) Femoroacetabular impingement of right hip: Status: Acute
--- NOTE | 2023-08-24 10:57 | W.ANESPRE ---
General Info Date of Service Date Performed: 08/24/23 Height: 5 ft 7 in Weight: 125.192 kg Body Mass Index (BMI): 43.2 Surgical Procedure: Operation Date: 08/24/23 13:35 Proposed Procedure Side Surgeon p Hip Total Hip Anterior, ACTIS Right Deniz Tavera MD Meds Allergies and Home Medications Allergies Allergy/AdvReac Type Severity Reaction Status Date / Time No Known Allergies Allergy Verified 08/22/23 12:56 Home Medication Medication Instructions Recorded acetaminophen 500 mg tablet 1,000 mg (2 x 500 mg) PO TID #90 08/24/23 tabs aspirin 81 mg tablet,delayed 81 mg PO BID #60 tabs 08/24/23 release celecoxib 200 mg capsule 200 mg PO BID #60 caps 08/24/23 dexamethasone 4 mg tablet 4 mg PO DAILY #2 tabs 08/24/23 oxycodone 5 mg tablet 5 mg PO Q4H PRN pain #20 tabs 08/24/23 pantoprazole 40 mg tablet,delayed 40 mg PO DAILY #30 tabs 08/24/23 release Current Visit Medications: Current Medications Generic Name Dose Route Start Last Admin Trade Name Freq PRN Reason Stop Dose Admin Acetaminophen 1,000 mg 08/24/23 06:00 Acetaminophen 500 Mg Tab PO 08/24/23 23:59 PREOP VERÓNICA Acetaminophen 1,000 mg 08/24/23 07:26 Acetaminophen 500 Mg Tab PO 09/23/23 07:25 TID PRN PRN Analgesia Celecoxib 200 mg 08/24/23 06:00 Celecoxib 200 Mg Cap PO 08/24/23 23:59 PREOP VERÓNICA Docusate Sodium 100 mg 08/24/23 07:26 Docusate Sodium 100 Mg Cap PO 09/23/23 07:25 BID PRN PRN Constipation Ringer's Solution 1,000 mls @ 80 mls/hr 08/24/23 06:00 IV 08/24/23 23:59 INFUSION VERÓNICA Cefazolin Sodium 3,000 mg/ 100 mls @ 200 mls/hr 08/24/23 06:00 Sodium Chloride IVPB 08/24/23 23:59 PREOP VERÓNICA Tranexamic Acid/Sodium Chloride 100 mls @ 600 mls/hr 08/24/23 06:00 IVPB 08/24/23 23:59 PREOP VERÓNICA IV Miscellaneous Supplies 1 each 08/24/23 06:00 Iv Access IV 08/24/23 23:59 DIRECTED VERÓNICA Ondansetron HCl 4 mg 08/24/23 07:26 Ondansetron 4 Mg/2 Ml Vial IVP 09/23/23 07:25 Q6H PRN PRN Nausea Oxycodone HCl 0 mg 08/24/23 07:26 Oxycodone 5 Mg Tab PO 09/23/23 07:25 Q3H PRN PRN Pain Polyethylene Glycol 17 gm 08/24/23 07:26 Polyethylene Glycol 3350 17 Gm Packet PO 09/23/23 07:25 BID PRN PRN Constipation Sodium Chloride 0 ml 08/24/23 06:00 Normal Saline Flush 10 Ml Syr IV 08/24/23 23:59 PRN PRN Sodium Chloride 0 ml 08/24/23 06:00 Normal Saline 10 Ml Vial IJ 08/24/23 23:59 DIRECTED PRN Sterile Water 0 ml 08/24/23 06:00 Water,Injection,Sterile 10 Ml Vial IJ 08/24/23 23:59 DIRECTED PRN PFSH Active Problems Active Problems: Problem Status Onset Code Femoroacetabular impingement of right hip M25.851 Avascular necrosis of bone of right hip M87.051 Memory impairment R41.3 Paresthesia R20.2 Amenorrhea N91.2 Sleep disorder G47.9 Hypertension I10 Vitamin B12 deficiency E53.8 Expressive dysphasia R47.02 Radiculopathy of cervical spine M54.12 Compression fx, thoracic spine S22.000A PTSD (post-traumatic stress disorder) 01/06/18 F43.10 Depression 01/06/18 F32.9 Anxiety 01/06/18 F41.9 Medical History Medical History History of psychiatric disorder 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 denies Gallbladder polyp pt. denies ADD (attention deficit disorder) pt. denies Arm laceration Encounter for screening for other viral diseases History of substance abuse in remission History of bacterial meningitis pt. denies Depression Anxiety Medical History Comments:: Pt. states she wakes up extremely emotional Pt. states no PTSD triggers at this time Surgical History Surgical History LSO, LAPROSCOPIC Dilation and curettage (~01/2013) [facility] Tobacco Smoking/Tobacco Use Status: Current every day Tobacco Type: cigarettes Alcohol Alcohol Intake: never Substance Use Substance use: Daily Substance use type: marijuana Vital Signs and Lab Results Lab Results Blood Type / Crossmatch: No Data to Display Complete Blood Count: White Blood Count 9.31 10^3/uL (4.4-10.8) 08/12/23 10:49 Red Blood Count 4.47 10^6/uL (3.93-5.22) 08/12/23 10:49 Hemoglobin 12.8 g/dL (11.2-15.7) 08/12/23 10:49 Hematocrit 38.8 % (36.0-46.0) 08/12/23 10:49 Platelet Count 306 10^3/uL (130-400) 08/12/23 10:49 Complete Metabolic Panel: Sodium 140 mmol/L (136-145) 08/12/23 10:49 Potassium 3.7 mmol/L (3.5-5.1) 08/12/23 10:49 Chloride 103 mmol/L (98-107) 08/12/23 10:49 Carbon Dioxide 28.7 mmol/L (21.0-32.0) 08/12/23 10:49 BUN 11 mg/dL (7-18) 08/12/23 10:49 Creatinine 0.9 mg/dL (0.55-1.02) 08/12/23 10:49 Est GFR (CKD-EPI 2020) 79.85 (mL/min/1.73m2) 08/12/23 10:49 Calcium 8.9 mg/dL (8.5-10.1) 08/12/23 10:49 Glucose 108 mg/dL (74-106) H 08/12/23 10:49 Liver Function Panel: No Data to Display Coagulation Panel: No Data to Display Cardiac Panel: No Data to Display Arterial Blood Gas: No Data to Display Venous Blood Gas: No Data to Display Pancreas Panel: No Data to Display Thyroid Panel: No Data to Display Infectious Disease: No Data to Display Blood Cultures: No Data to Display Toxicology Panel: No Data to Display Panel: No Data to Display Anesthesia Assessment and Plan Anesthesia History Personal History: No History of Anesthesia Complications Family History: No Family History of Anesthesia Complications Exercise Tolerance Exercise Tolerance: Metabolic Equivalents>4 Pertinent Negatives Pertinent Negatives: No Symptoms of GERD Cardiac & Pulmonary Exam Cardiac Exam: Normal S1/S2 Heart Sounds Pulmonary Exam: Clear Bilateral Breath Sounds Implantable Cardiac Device Does patient have a Pacemaker or an ICD?: No Airway Exam Known Difficult Airway: No Mallampati Class: 2 Mouth Opening: Narrow (< 3cm) Thyromental Distance: Greater than 3 cm Neck Range of Motion: Limited ROM (cervical spine compression) Neck Circumference: Thick Teeth Condition: Normal Dentition ASA Classification ASA Score: ASA 2 Emergency Case?: No NPO Status NPO Status: NPO Clears >2 hours, Solids >8 hours Status Status: Negative HCG Anesthesia Plan Resuscitation Status: Full Code Anesthesia Technique: Spinal Anesthesia Airway Planned: Natural Airway Monitors Used: Standard Monitors
[2023-08-24] MEDS: Lactated Ringers 1,000 ML 80 ML IV (11:01)
[2023-08-24] MEDS: Celecoxib 200 MG CAP PO (11:02)
[2023-08-24] MEDS: Acetaminophen 500 MG TAB 1000 MG PO ×2 (11:03→16:49)
[2023-08-24] MEDS: ceFAZolin 3,000 MG in Normal Saline 100 ML 200 MG IVPB (13:29)
--- NOTE | 2023-08-24 14:53 | ROE_ITS ---
Date of service: 08/24/23 Time of Service: 14:35 Operative Note Operative Note DATE OF PROCEDURE: 08/24/23 PRE-OP DIAGNOSIS: Right Hip Avascular Necrosis/Osteoarthritis POST-OP DIAGNOSIS: same PROCEDURE: Right Anterior Total Hip Arthroplasty with Intraoperative Navigation SURGEON: Deniz Tavera [employer]ORATORY [employer] SUPERVISOR: John Clemons ANESTHESIA TYPE: Spinal Refer to Anesthesia Record ESTIMATED BLOOD LOSS: 350 PATHOLOGY: none sent TOURNIQUET TIME: 0 COMPLICATIONS: None Patient was transported to: PACU Patient's condition: stable Implants: 1. Depuy [place] Acetabular Component, 52mm 2. Depuy Acetabular Liner, 52l00kb 3. Depuy Corail Short Neck Collared Femoral Stem, Size 12 4. Depuy Altrx Ceramic Femoral Head, Size 36+8.5mm Indications: I have seen Ara in clinic for symptoms of hip arthritis, confirmed with radiographic findings. She has exhausted nonoperative methods and was having significant limitations in daily function and desired better function and less pain. I discussed the technical details of a hip replacement. I explained the risks of the procedure to include, but not limited to, bleeding, infection, pain, stiffness, fracture, damage to nerves and vessels, damage to muscles and tendons, loosening, instability, leg length inequality, need for repeat procedure, blood clot and cardiopulmonary demise. Despite these risks, Ara elected to proceed. Findings: There was significant synovitis within the hip along with degradation of the cartilage. Procedure Description: Ara was greeted in the preoperative holding area where the correct side was identified and marked. The consent was reviewed with the patient and signed. The history and physical was updated. All questions were answered. She was taken back to the operating room. A spinal anesthestic was then administered. The feet were wrapped with cast padding and Coban and then placed into the boot liners and then into the boots. Care was taken to protect the skin and make sure the heels were fully down and the boots were stable. The patient was then positioned onto the HANA table. Both legs were held in a neutral position. SCDs were applied. The patient was then slid down onto a peroneal post. Prophylactic antibiotics in the form of Cefazolin were administered. 1g of Tranxemic Acid was given intravenously within 30 minutes of incision. The right leg was then prepped with Chloraprep and draped in a standard fashion. A second prep with Chloraprep was performed prior to placement of a shower-curtain type drape with Iodine impregnated skin prote ction. A timeout to confirm correct identity, side and site, procedure, allergies, anesthesia, and medical concerns was performed. An obliquely oriented incision was made starting lateral to the ASIS and running distal over the Tensor Fascia Gavi (TFL) muscle belly toward the fibular head, approximately 10cm. The skin and soft tissue was dissected sharply, through Suyapa?s fascia, and to the fascia of the TFL. With the fascia and superior border of the IT band identified, the fascia was incised with a new knife just above any perforators from the IT band. The TFL muscle belly was bluntly dissected away from the fascia and moved laterally. The fat between TFL and rectus was identified to ensure the dissection was not within the TFL. Blunt dissection created space between abductors and the capsule and retractor was placed over the lateral femoral neck. The fibers of the rectus femoris tendon were identified and these were freed from the anterior capsule. A second cobra retractor was placed around the medial femoral neck. The TFL was further retracted laterally to show the deep fascia. Careful dissection through this layer identified three main crossing vessels of the lateral femoral circumflex. These were cauterized in multiple locations and then cut without any noticeable bleeding. The TFL was further released bluntly from the deep fascia to expose anterior hip capsule and fat The Billy orthopaedic retractor was then placed beneath the TFL and against sartorius and medial soft tissues to protect and retract the soft tissues. A T-capsulotomy was then performed starting at the superior lateral acetabulum and moving distally to the intertrochanteric ridge. These capsular flaps were tagged with a No. 1 Ethibond and elevated from within. The capsular flaps were released to the shoulder of the lateral neck and to the lesser trochanter to give excellent visualization of the proximal femur. There is notable synovitis which was also debrided. A neck osteotomy was performed using an oscillating saw based on preoperative templates. This cut started in the shoulder and of the lateral neck and exited medially. The saw was at all times directed medially to avoid injury to the greater trochanter. Gross traction was applied to the leg and the osteotomy opened. The femoral head was removed with a corkscrew, making sure to protect the TFL on its exit. The head showed signs of degradation of the cartilage with irregularity and some delamination. Traction was released after head removal. This was measured on the back table to determine the starting reamer size. Portions of the rectus obscuring visualization were minimally elevated off the superior acetabulum. An anterior retractor was placed over the anterior wall between capsule and labrum and attached to the Gripper retraction system. The femur was rotated to 90 degrees and medial capsule was fully released until the lesser trochanter was palpable and visible; the femur was returned to 30 degrees. A posterior retractor was placed similarly between capsule and labrum. This provided excellent visualization. The contents of the cotyloid fossa were removed with electrocautery and the labrum was removed with a knife. There was a notable floor osteophyte. Acetabular reaming began with a 48mm reamer. This first reaming was directed anterior to posterior and medial to get down to the true floor. This was inspected and reamed until the true floor was reached. The anterior retractor was then released and entry and exit was provided by traction on the capsular flaps. I then reamed sequentially up to a 52mm reamer where good fit was obtained. The larger reamers were oriented based on anatomical reference of the anterior and lateral lopez to ensure proper abduction and anteversion. Positioning and size was confirmed with the fluoroscopy. A 52mm Depuy [place] acetabular component was selected. The acetabulum was reamed around the periphery with the selected acetabular size to prevent a rim fit. The deep tissues were irrigated. The acetabular component was then impacted in a position of about 40-45 degrees of abduction and 15-20 degrees of anteversion, using the patient?s anatomy as the ultimate landmark. Fluoroscopy was used to confirm this. There was excellent child care worker of the acetabular component and the inserting handle was removed. The acetabular liner, Depuy [id number] polyethylene liner, was inserted and lined up with the tines of the acetabular component. There was no soft tissue interposition. The liner was then impacted into position and confirmed to be well-seated. A portion of the lalo-articular cocktail was then injected around the acetabulum into the capsule and periosteum. This cocktail consisted of 123mg of Ropivacaine, 0.25mg of Epinephrine, 0.04mg of Clonidine, and 15mg of Ketorolac, diluted to 50cc. The leg was rotated to 120 degrees. Any remaining medial capsule was released until the lesser trochanter was easily palpable. A retractor was placed medially. The lateral capsule was further released into the shoulder to allow access to the greater trochanter. A Loya retractor was placed over the greater trochanter which allowed the trochanter to flip in front of the capsule for excellent exposure. The leg was brought down into maximal extension and 20 degrees of adduction while ensuring there was no impingement on the acetabulum. Any remnant capsule within the trochanter was released. Piriformis and obturator externis were identified and protected. There was excellent access to the proximal femur. The lateral neck remnant was removed with a rongeur. A blunt canal probe was used to identify the canal and trajectory for later broaching. A box osteotome initiated the broach course. A small curved rasp and a curved curette were used to work laterally. Broaching then began with a size 8 Corail broach. This was inserted manually around the trochanter and into the canal before mallet blows. The broach was seated to a few millimeters below the cut level based on the neck cut and the preoperative template. Sequential broaching was continued with the Untanglese pneumatic broaching device until a tight fit was obtained with good rotational control of the femur. A trial short neck was inserted along with a +5 trial head. The leg was brought out of extension and adduction and then reduced with traction and internal rotation. The leg was stable anteriorly in a position of 30 degrees of extension and 90 degrees of external rotation. Fluoroscopy was used to ensure there was no fracture and the stem was seated well. Leg lengths were checked with an AP pelvis and pelvic reference points. Whereoscope navigation system was used to confirm appropriate positioning and leg length and offset. Once content with the desired offset and leg lengths, the leg was brought back into extension, external rotation and adduction. The periosteum and surrounding tissue was injected with remaining portion of the lalo-articular cocktail. The proximal femur was irrigated as well as the deep tissues. The Depuy Corail short neck collared stem, size 12, was then manually inserted into the proximal femur making sure to control rotation. It was then malleted into position with light blows, giving breaks to allow bone expansion and decrease risk of fracture. The selected Depuy Altrx Ceramic Head, size 36+8.5mm, was then placed onto the clean and dry trunnion and secured with impaction onto the tapered fit. The leg was brought back out of extension and adduction and reduced with tractio n and internal rotation. Stability was confirmed with no shuck at 90 degrees of external rotation and 30 degrees of extension. No impingement through range of motion arc. Final x-ray images were obtained with fluoroscopy to confirm adequate positioning and no intraoperative fracture. The deep tissues were thoroughly irrigated with Irrisept chlorhexidine solution. This was allowed to sit in the wound for 3 minutes before being thoroughly irrigated out with normal saline. The capsule was then reapproximated with the previously placed Ethibond sutures. The TFL fascia was finally closed with a No. 2 Stratafix, barbed suture. Deep tissues were then reapproximated with 0 Vicryl and a running 2-0 Vicryl. The skin was closed with a running 4-0 Monocryl in a subcuticular fashion. This was reinforced with skin glue. A Mepilex silver dressing was applied. At the end of the case, all counts were correct. Ara was transferred to the hospital bed without difficulty and suffering no apparent complication. Ara has a good prognosis. Physical therapy will start today and without restrictions, weight-bearing as tolerated. Aspirin 81mg BID will be used for DVT prophylaxis.
--- NOTE | 2023-08-24 14:53 | DI.RAD_ITS ---
Exam(s) XR HIP RT IN OR EXAM: XR HIP RT IN OR CLINICAL HISTORY: FEMOROACETABULAR IMPINGEMENT OF RT HIP TECHNIQUE: 2D and realtime digital imaging was performed. CONTRAST MATERIAL: Refer to procedure report. COMPARISON: CR XR PELVIS AP from 08/12/2023 FINDINGS: Fluoroscopy was provided for Dr. Tavera during the performance of a right total hip replacement. Please refer to the procedure report for complete details. Ka,r=5.28 mGy IMPRESSION: RADIATION DOSE DELIVERED: 0.0 2322.1 0
[2023-08-24] MEDS: fentaNYL 100 MCG/2 ML VIAL IVP ×2 (15:25→15:32)
--- NOTE | 2023-08-24 15:44 | W.ANESPOSTOP ---
Postoperative Evaluation Date, Time and Location Date Performed: 08/24/23 Time Performed: 15:44 Patient Location: PACU Vital Signs Most Recent Imported Vital Signs: Most Recent Vital Signs Temp Pulse Resp BP Pulse Ox 36.6 C 64 19 169/91 H 94 08/24/23 15:35 08/24/23 15:35 08/24/23 15:35 08/24/23 15:35 08/24/23 15:35 Pain Score Most Recent Pain Score: Most Recent Pain Score Pain Level 5 08/24/23 15:35 Assessment Mental Status: Awake (Alert & Oriented to Patient Baseline) Airway and Respiratory Function: Patent airway with normal (patient baseline) respiratory exam Cardiovascular Function: Hemodynamically Stable Hydration Status: Adequately Hydrated Nausea & Vomiting: No Nausea or Vomiting Pain: Pain is tolerable per patient Peripheral Nerve Block: Patient did not receive a nerve block
[2023-08-24] MEDS: oxyCODONE 5 MG TAB PO (16:06)
--- NOTE | 2023-08-24 16:49 | PT.INIE ---
PT Notes Visit Reasons: R THR Physical Therapy Day Surgery Initial Evaluation Date: 08/24/2023 Referring Doctor: ANDRE Hernández PT Orders: PT CONSULT: S/P Ortho Surgery Precautions: WBAt on the R LE with AD. 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 PMHX: Medical History (Updated 08/08/23 @ 17:27 by Halley Smith RN) History of psychiatric disorder Aphasia expressive dysphasiaGrief reaction with prolonged bereavement (01/06/18) Nephrolithiasis Gallbladder polyp ADD (attention deficit disorder) Arm laceration Encounter for screening for other viral diseases History of substance abuse in remission History of bacterial meningitis Depression Anxiety Surgical History LSO, LAPROSCOPIC Dilation and curettage (~01/2013) [facility] Social History/Home Situation: Has been using her front wheeled walker for all mobility ADL performance in the past 3 to 4 weeks due to worsening back and right hip pain. Has 10 steps to enter with rails on both sides. Will have the help of her family as she recovers at home. Equipment Owned/DME: None Subjective: Reports pain began 3/10 and on the right hip incision at same intensity that did not limit ambulation distance and mobility performance. Denied headache, chest pain, and lightheadedness throughout session. Objective: General Observation: Mepilex Ag over surgical incision. TEDS to be legs. Mental Status: A&O x 4 Pain: As above ROM: Right Lower Extremity: Hip flexion WFL. Hip abduction WFL. Knee flexion WFL. Ankle dorsiflexion WFL. Ankle plantarflexion WFL. Left Lower Extremity: Hip flexion WFL. Hip abduction WFL. Knee flexion WFL. Ankle dorsiflexion WFL. Ankle plantarflexion WFL. Strength: Right Lower Extremity: Hip flexors 4/5. Hip abductors 4/5. Knee flexors 5/5. Knee extensors 4/5. Ankle dorsiflexors 5/5. Ankle plantarflexors 5/5. Left Lower Extremity:Hip flexors 5/5. Hip abductors 5/5. Knee flexors 5/5. Knee extensors 5/5. Ankle dorsiflexors 5/5. Ankle plantarflexors 5/5. Sensation: Intact as to pain and light pressure in BLE Bed Mobility/Transfers: Minimal cueing provided for use of B hands as needed for support, movement sequence, AD management, and posture to reduce fall risk and minimize pain report. Supine to sit standby assist Sit to stand standby assist with FWW Stand to sit standby assist with FWW Bed to chair standby assist with FWW Gait: Facilitated safe and correct performance of level surface ambulation covering a distance of 150 feet using front wheeled walker with reciprocal step through heel-toe gait pattern requiring only standby assist and minimal verbal cueing for limb advancement, AD management, and posture to reduce fall risk and minimize pain report. Stairs: Guided patient with safe and correct performance of 6 x 4 inch steps and 4 x 6 inch steps holding onto bilateral rails with step to gait pattern requiring only standby assist and minimal verbal cueing for limb advancement and posture to reduce fall risk and minimize pain report. Balance: Static Sitting: Normal Dynamic Sitting: Normal Static Standing: Fair Dynamic Standing: fair Special Tests: Mobility Limitations Standardized Measure [facility] 6 clicks Basic Mobility Inpatient Short Form: Raw Score: 24 CMS Score: 0% deficit Informed Consent/Education: Patient instructed in purpose of PT consult. Packet containing KRISTIAN exercise protocol has been given to patient. Education and training on initial set of exercises that can be done at home have been completed with patient. Trained patient with correct performance of exercises below to maximize motor control, joint flexibility, soft tissue extensibility of the R hip musculature to facilitate return to independent functional mobility performance. Access Code: [email or web address] URL: [email or web address] Date: 08/23/2022 Prepared by: Keshia Lopez Exercises - Gluteal Sets - 1 x daily - 7 x weekly - 1 sets - 10 reps - 5 hold - Supine Heel Slide - 1 x daily - 7 x weekly - 1 sets - 10 reps - 5 hold - Supine Ankle Pumps - 1 x daily - 7 x weekly - 1 sets - 10 reps - 5 hold - Seated March - 1 x daily - 7 x weekly - 1 sets - 10 reps - 5 hold - Seated Long Arc Quad - 1 x daily - 7 x weekly - 1 sets - 10 reps - 5 hold Assessment: Patient requires use of a front wheeled walker for mobility ADL performance maximize independence and reduce fall risk. Patient presents with clinical signs and symptoms consistent with current/admitting diagnoses that have resulted to mobility limitations, gait instability, generalized weakness, and impairment of motor control as demonstrated by the following impairment level findings: 1. Decreased strength to right hip major muscle groups 2. Impaired standing balance Impairments are contributing to the following functional limitations: 1. Inability to safely ambulate without assistive device 2. Increase completion time for mobility ADL performance 3. Increased fall risk Patient is assessed as a 05036 moderate complexity based on the following: History: 48-year-old female with impairment level findings, functional limitations, and past medical history as indicated above Examination: Demonstrable impairment in strength, balance, and mobility level with underlying impairments and functional limitations as documented above Presentation: Evolving Decision Makin moderate complexity Goals: N/A. PT evaluation and 1-2 treatment sessions only for functional mobility training using recommended AD and for HEP instruction. Plan of Care/Treatment Plan: N/A. PT evaluation and 1-2 treatment session only for functional mobility training using recommended AD and for HEP instruction. DISCHARGE RECOMMENDATIONS: Home when medically cleared by orthopedic surgeon. Recommend outpatient PT services in order to optimize functional mobility outcomes and facilitate return to independent community ambulation without an assistive device. TREATMENT CODE/TIME: 9716 2 x 19 minutes for 1 unit (16:49-17:08) Thank you for the opportunity to participate in the care of this patient. Please sign an return this page within 30 days if you agree with the above POC. Thank you! Physician Signature Date [facility] Thank you for the opportunity to participate in the care of this patient. Keshia Lopez PT, DPT, CLT [facility] [place], [place]
== END 2023-08-24 17:27 | disposition home or self-care (01) ==
LOC: SUR 10:27
PROVIDERS: PCP Family Medicine; Visit Provider Student in an Organized Health Care Education/Training Program
PROC: (CPT 27130; principal; 2023-08-24 13:15)
DX: M87.051 Idiopathic aseptic necrosis of right femur (principal); M16.11 Unilateral primary osteoarthritis, right hip; I10 Essential (primary) hypertension; M54.12 Radiculopathy, cervical region; Z79.899 Other long term (current) drug therapy
CPT/HCPCS: 27130; 20985; 81025; 97162; 73501; C1776; J0690; J1100; J2001; J2250; J2371; J2401; J2405; J2704; J3010

== ENCOUNTER 2023-09-08 14:47 | Outpatient (CLI) | payer BC, SELFPAY ==
--- NOTE | 2023-09-08 11:00 | DI.RAD_ITS ---
Exam(s) XR HIP RT COMPLETE AP PELVIS EXAM: XR HIP RT COMPLETE AP PELVIS CLINICAL HISTORY: 1ST POST OP S/P R KRISTIAN. TECHNIQUE: 2D digital imaging was performed. Two images were obtained. AP pelvis and lateral right hip views were obtained. COMPARISON: CR XR HIP RT COMPLETE AP PELVIS from 04/18/2023 CR XR PELVIS AP from 08/12/2023 XA XR HIP RT IN OR from 08/24/2023 FINDINGS: BONES: There are stable post operative changes of a right total hip replacement present. No fracture or dislocation. JOINTS: The orthopedic hardware is in good position. No evidence of hardware loosening. SOFT TISSUE: Normal. IMPRESSION: Stable right total hip replacement. DATA REPOSITORY: RADIATION DOSE DELIVERED:
== END 2023-09-08 14:48 | disposition home or self-care (01) ==
LOC: DIORS 14:48
PROVIDERS: PCP Family Medicine; Visit Provider Student in an Organized Health Care Education/Training Program
DX: Z96.641 Presence of right artificial hip joint (principal); Z47.1 Aftercare following joint replacement surgery
CPT/HCPCS: 73502

== ENCOUNTER 2024-04-18 02:08 | Outpatient (CLI) | payer BC, SELFPAY ==
--- NOTE | 2024-04-18 | DI.RAD_ITS ---
Exam(s) XR CHEST 2V PA LATERAL EXAM: XR CHEST 2V PA LATERAL CLINICAL HISTORY: COUGH, R05.9,SMOKING HISTORY TECHNIQUE: 2D digital imaging was performed of the chest. Two images were obtained. PA and lateral views were obtained. COMPARISON: CR,XR XR CHEST 2V PA LATERAL from 01/08/2021 FINDINGS: MEDIASTINUM: Normal. HEART: Normal. PULMONARY VASCULATURE: Normal. LUNGS: Clear. PLEURAL SPACE: No pleural effusion or pneumothorax. BONE:Within normal limits for the patient's age. OTHER FINDINGS:Normal. IMPRESSION: No acute pulmonary findings. DATA REPOSITORY: RADIATION DOSE DELIVERED:
== END 2024-04-18 02:28 ==
LOC: DI 02:09
PROVIDERS: PCP Family Medicine; Visit Provider Student in an Organized Health Care Education/Training Program
DX: R05.9 Cough, unspecified (principal); F17.210 Nicotine dependence, cigarettes, uncomplicated
CPT/HCPCS: 71046

== ENCOUNTER 2024-04-18 03:34 | Outpatient (CLI) | payer BC, SELFPAY ==
[2024-04-18 11:20] LABS: Abs Immature Grans 0.03 10^3/uL (0.0-0.06); Absolute Basophil Count 0.07 10^3/uL (0.0-0.2); Absolute Eosinophil Count 0.15 10^3/uL (0.0-0.7); Absolute Lymphocyte Count 1.67 10^3/uL (1.2-3.4); Absolute Monocyte Count 0.53 10^3/uL (0.1-0.8); Absolute Neutrophil Count 5.87 10^3/uL (1.2-6.7); Basophils % 0.8 %; Eosinophils % 1.8 %; HCT 37.3 % (36.0-46.0); HGB 12.5 g/dL (11.2-15.7); Immature Grans % 0.4 %; Lymphocytes % 20.1 %; MCH 29.6 pg (27.0-33.0); MCHC 33.5 % (32.0-36.0); MCV 88 fL (80-95); MPV 10.1 fL (8.0-11.0); Monocytes % 6.4 %; Neutrophils % 70.5 %; Platelet Count 259 10^3/uL (130-400); RBC 4.23 10^6/uL (3.93-5.22); RDW 13.7 % (11.7-14.6); RDW-SD 44.6 fL; WBC 8.32 10^3/uL (4.4-10.8)
[2024-04-18 12:10] LABS: Folate 6.2 ng/mL (8.6-20.0); TSH 0.86 uIU/mL (0.36-3.74); Vitamin B12 1437 pg/mL (193-986)
[2024-04-18 12:11] LABS: Vitamin D 25 Total < 5 ng/mL (30-100)
[2024-04-18 19:57] LABS: Homocysteine 11.3 umol/L (5.0-13.9)
[2024-04-20 11:13] LABS: Tissue Transglutaminase IgA <4.0 CU (<20.0)
== END 2024-04-18 03:35 | disposition home or self-care (01) ==
LOC: LBO 03:34
PROVIDERS: PCP Family Medicine; Visit Provider Student in an Organized Health Care Education/Training Program
DX: E55.9 Vitamin D deficiency, unspecified (principal); E53.9 Vitamin B deficiency, unspecified
CPT/HCPCS: 36415; 80186; 82306; 83090; 82607; 82746; 84443; 85025

== ENCOUNTER 2024-06-20 03:29 | Outpatient (CLI) | payer OTHER, SELFPAY ==
--- NOTE | 2024-06-20 08:35 | DI.RAD_ITS ---
Exam(s) XR CHEST 2V PA LATERAL EXAM: XR CHEST 2V PA LATERAL CLINICAL HISTORY: ACUTE COUGH, R05.1 TECHNIQUE: 2D digital imaging was performed of the chest. Two images were obtained. PA and lateral views were obtained. COMPARISON: CR XR CHEST 2V PA LATERAL from 04/18/2024 FINDINGS: MEDIASTINUM: Normal. HEART: Normal. PULMONARY VASCULATURE: Normal. LUNGS: Clear. PLEURAL SPACE: No pleural effusion or pneumothorax. BONE:Within normal limits for the patient's age. OTHER FINDINGS:Normal. IMPRESSION: No acute pulmonary findings. DATA REPOSITORY: RADIATION DOSE DELIVERED:
== END 2024-06-20 03:49 ==
PROVIDERS: PCP Student in an Organized Health Care Education/Training Program; Visit Provider Student in an Organized Health Care Education/Training Program
DX: R05.1 Acute cough (principal)
CPT/HCPCS: 71046

== ENCOUNTER 2024-12-27 10:43 | Outpatient (CLI) | payer OTHER, SELFPAY ==
--- NOTE | 2024-12-27 10:15 | DI.RAD_ITS ---
Exam(s) XR HIP RT AP LAT ONLY EXAM: XR HIP RT AP LAT ONLY CLINICAL HISTORY: RIGHT HIP PAIN. TECHNIQUE: 2D digital imaging was performed. Two images were obtained. AP and lateral views were obtained. COMPARISON: CR XR HIP RT COMPLETE AP PELVIS from 09/08/2023 FINDINGS: BONES: There are stable post operative changes of a right total hip arthroplasty present. No fracture or dislocation. JOINTS: The orthopedic hardware is in good position. No evidence of hardware loosening. SOFT TISSUE: Normal. IMPRESSION: Stable right total hip arthroplasty. DATA REPOSITORY: RADIATION DOSE DELIVERED:
== END 2024-12-27 10:44 | disposition home or self-care (01) ==
LOC: DIORS 10:43
PROVIDERS: PCP Student in an Organized Health Care Education/Training Program; Visit Provider Student in an Organized Health Care Education/Training Program
DX: Z96.641 Presence of right artificial hip joint (principal)
CPT/HCPCS: 73502

== ENCOUNTER 2025-05-02 12:05 | Outpatient (REF) | payer OTHER, SELFPAY ==
[2025-05-02 15:57] LABS: Vitamin D 25 Total 17 ng/mL (30-100)
[2025-05-02 16:00] LABS: Hemoglobin A1C 5.3 % (<5.7)
[2025-05-02 16:14] LABS: ALT 15 U/L (10-49); AST 15 U/L (<34); Albumin 4.1 g/dL (3.4-5.0); Alkaline Phosphatase 100 U/L (46-116); Anion Gap 4.7 mmol/L (3-11); BUN 13 mg/dL (9-23); Bilirubin, Total 0.30 mg/dL (0.2-1.2); CO2 31.3 mmol/L (20.0-31.0); Calcium 9.0 mg/dL (8.3-10.6); Chloride 106 mmol/L (98-107); Cholesterol 163 mg/dL (<200); Glucose 90 mg/dL (74-106); HDL Cholesterol 54 mg/dL (>40); Potassium 5.0 mmol/L (3.5-5.1); Sodium 142 mmol/L (136-145); Total Protein 6.1 g/dL (5.7-8.2)
== END 2025-05-02 12:06 | disposition home or self-care (01) ==
LOC: NCHCN 12:05
PROVIDERS: PCP Student in an Organized Health Care Education/Training Program; Visit Provider Student in an Organized Health Care Education/Training Program
DX: Z13.1 Encounter for screening for diabetes mellitus (principal); Z13.220 Encounter for screening for lipoid disorders; E55.9 Vitamin D deficiency, unspecified; I10 Essential (primary) hypertension
CPT/HCPCS: 80053; 80061; 82306; 83036